=== PATIENT | female | born 1960 | race Caucasian/White ===

== ENCOUNTER 2022-02-10 06:44 | Inpatient (IN) ==
[2022-02-10] MEDS ORDERED: CEFEPIME 1 GM VIAL IV ONE (07:08)
[2022-02-10] MEDS ORDERED: VANCOMYCIN 1,000 MG in 0.9 % SODIUM CHLORIDE 250 ML IV ONE (07:08)
[2022-02-10] MEDS ORDERED: 0.9 % SODIUM CHLORIDE 1,000 ML IV ONE (07:39)
[2022-02-10 07:56] LABS: POC Calcium, Ionized 0.88 (1.16-1.32); POC Creatinine 0.9 (0.6-1.2); POC Potassium 4.2 (3.3-5.1)
[2022-02-10 08:33] LABS: Basophils # (Auto) 0.01 K/mcL (0.00-0.30); Basophils % (Auto) 0.1 % (0.0-2.0); Eosinophils # (Auto) 0.01 K/mcL (0.00-0.70); Eosinophils % (Auto) 0.1 % (0.0-7.0); Hematocrit 33.4 % (34.1-44.9); Lymphocytes # (Auto) 1.07 K/mcL (1.50-4.80); Lymphocytes % (Auto) 5.7 % (15.5-49.0); Mean Cell Volume 91.3 fL (80.0-100.0); Mean Corpuscular HGB Conc 29.9 g/dL (31.0-36.0); Mean Platelet Volume 9.4 fL (8.8-12.5); Monocytes # (Auto) 1.12 K/mcL (0.10-0.90); Neutrophils % (Auto) 87.8 % (38.0-78.0); Platelet Count 259 K/mcL (140-440); RBC 3.66 M/mcL (3.59-5.38); Red Cell Distribution Width 14.8 % (11.5-14.5); WBC 18.8 K/mcL (4.5-11.0)
[2022-02-10 08:53] LABS: ALT/SGPT 20 U/L (<40); AST/SGOT 26 U/L (<32); Albumin 4.1 gm/dL (3.2-5.2); Alkaline Phosphatase 158 U/L (39-117); Bilirubin,Direct < 0.2 mg/dL (0-0.3); Bilirubin,Total 0.4 mg/dL (0.1-1.0); Globulin 3.6 gm/dL (2.2-3.7)
--- NOTE | 2022-02-10 09:06 | XRay Report ---
HISTORY: Congestive heart failure, altered mental status FINDINGS: There are diffuse bilateral alveolar opacities throughout both lungs. No lobar consolidation is present. No pleural effusion is seen. The heart is moderately enlarged. There has been prior sternotomy with coronary bypass. Comparison with the prior exam from 01/02/22 shows the pulmonary edema has become significantly worse. IMPRESSION: Congestive heart failure with severe pulmonary edema Interpreted and Authenticated by: Yobany Rojas 02/10/22
[2022-02-10 09:25] LABS: Appearance,Urine CLEAR (Clear); Bilirubin,Urine Negative (Negative); Color,Urine YELLOW; Culture Indicated,Urine No; Glucose,Urine (UA) 50 mg/dL (Negative); Ketones,Urine Negative (Negative); Leukocyte Esterase,Urine Negative /uL (Negative); Nitrate,Urine Negative (Negative); Protein,Urine Negative (Negative); Specific Gravity,Urine 1.019 (1.000-1.035); Urine Blood Negative (Negative)
[2022-02-10] MEDS ORDERED: ACETAMINOPHEN 325 MG TABLET PO ONE (09:36)
--- NOTE | 2022-02-10 10:24 | Emergency Department Note ---
Altered Mental Status HPI General Chief Complaint: Altered Mental Status Stated Complaint: ams Time Seen by Provider: 02/10/22 07:01 Source: EMS Mode of arrival: wheelchair Limitations: altered mental status History of Present Illness HPI Narrative: Narrative: Patient presents to the emergency department with altered mental status fever and shortness of breath. Patient's symptoms reportedly began this morning. Patient is confused and is difficult to obtain history. Per chart review patient does have a history of type 2 insulin-dependent diabetes, CAD status post 5 vessel CABG, CHF wears 3 L nasal cannula at baseline. Her blood sugar was 200 for EMS. Patient denies any pain she denies any abdominal pain diarrhea chest pain she does report shortness of breath. She reports slight cough. Mostly nonproductive in nature. Related Data Home Medications Medication Instructions Recorded Confirmed Levemir Flextouch 08/23/17 05/22/21 losartan 100 mg tablet (Cozaar) 100 mg PO DAILY 08/23/17 05/22/21 omega [id number]-imi-vvg-fish oil 300 1 ea PO DAILY 08/23/17 05/22/21 mg-1,000 mg capsule (Fish Oil) insulin aspart U-100 100 unit/mL 7 unit SQ 08/30/17 05/22/21 subcutaneous solution (Novolog U-100 Insulin aspart) Insulin Pen Herrick #1 ea 01/27/18 05/22/21 blood sugar diagnostic (True #20 ea 01/27/18 05/22/21 Metrix Glucose Test Strip) blood-glucose meter (True Metrix #1 ea 01/27/18 05/22/21 Glucose Meter) hydrocodone 7.5 mg-acetaminophen 1 tab PO PRN PRN Pain 01/27/18 05/22/21 325 mg tablet insulin aspart U-100 [Novolog subcut TID 01/27/18 05/22/21 Flexpen U-100 Insulin] insulin detemir U-100 100 unit/mL 100 unit subcut QHS 01/27/18 05/22/21 subcutaneous solution (Levemir U-100 Insulin) lancets [Ultra Fine Lancets] miscellaneous QDAY 01/27/18 05/22/21 multivitamin 1 tab PO QDAY 01/27/18 05/22/21 nitroglycerin 0.4 mg sublingual 0.4 mg sublingual Q5-15M PRN 01/27/18 05/22/21 tablet acyclovir 400 mg tablet 400 mg PO TID 05/31/19 05/22/21 zolpidem 5 mg tablet 5 mg PO HSP PRN Sleep 05/31/19 05/22/21 atorvastatin 40 mg tablet 40 mg PO QHS 05/10/20 05/22/21 gabapentin 300 mg capsule 300 mg PO QAM 05/10/20 05/22/21 gabapentin 300 mg capsule 600 mg PO QHS 05/10/20 05/22/21 hydrochlorothiazide 25 mg tablet 12.5 mg PO DAILY 05/10/20 05/22/21 methocarbamol 500 mg tablet 500 mg PO BID PRN Muscle Spasm 05/10/20 05/22/21 metoprolol tartrate 25 mg tablet 50 mg PO DAILY 05/10/20 05/22/21 ibuprofen 200 mg tablet 400 mg PO .Q6-8H 05/11/20 05/22/21 minocycline 100 mg capsule 100 mg PO BID 05/11/20 05/22/21 beyujxxr-gnt-dzrk-FA-lutein PO QDAY 05/11/20 05/22/21 [Centrum [facility]] nystatin 100,000 unit/gram topical 1 applic topical BID 05/11/20 05/22/21 powder nystatin-triamcinolone 100,000 1 applic topical BID 05/11/20 05/22/21 unit/g-0.1 % topical cream prednisolone acetate 1 % eye 1 drp ophthalmic (eye) ONCE 05/11/20 05/22/21 drops,suspension (Pred Forte) triamcinolone acetonide 0.1 % 1 applic topical QDAY 05/11/20 05/22/21 topical cream urea 40 % topical cream 1 applic topical BID 05/11/20 05/22/21 aspirin 81 mg tablet,delayed 81 mg PO DAILY 04/14/21 05/22/21 release (Manuela Low Dose Aspirin) pantoprazole 40 mg tablet,delayed 40 mg PO QDAY 04/14/21 05/22/21 release Previous Rx's Medication Instructions Recorded albuterol sulfate 90 mcg/actuation 8.5 gm IH Q4-6HP PRN Cough ##1 01/03/18 aerosol inhaler Allergies Allergy/AdvReac Type Severity Reaction Status Date / Time Sulfa (Sulfonamide Allergy Severe Swelling Verified 11/06/21 08:19 Antibiotics) of Lip/Tongue/Throat Review of Systems ROS ROS Narrative: Narrative: All systems ED: reviewed and negative except as stated. [facility] Narrative Patient History Narrative: Narrative: Medical/Surgical/Family History All Active Problems (Updated 02/10/22 @ 14:14 by Yves Erickson MD) Community acquired pneumonia (Acute) Acute and chronic respiratory failure (Acute) Essential hypertension (Acute) Community acquired bacterial pneumonia (Acute) CHF exacerbation (Acute) Diarrhea (Acute) CHF (congestive heart failure) (Acute) SVT (supraventricular tachycardia) (Acute) Chronic back pain (Acute) Acute bacterial sinusitis (Acute) Hyperglycemia (Acute) Cellulitis (Acute) Cellulitis of right leg (Acute) History of surgery (Chronic) History of surgery (Chronic ~2018) History of surgery (Chronic ~2017) History of hand surgery (Chronic) Hip pain (Chronic) Other instability, right foot (Chronic) Other instability, right ankle (Chronic) Lumbar back pain (Chronic) Severe sepsis without septic shock (Chronic) Type 2 diabetes mellitus with neurologic complication (Chronic) Diabetic ulcer of right foot (Chronic) Diabetic ulcer of left foot (Chronic) Hypoxemia (Chronic) Sciatica neuralgia (Acute) Fall (Acute) Abrasion (Acute) Septic shock (Acute) Acute kidney injury (Acute) Non-ST elevation NM (NSTEMI) (Acute) Acute hyperkalemia (Acute) Heart palpitations (Chronic) Shortness of breath on exertion (Chronic) Joint pain (Chronic) Arthritis (Chronic) Avulsion of toenail (Chronic) 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) Hx of tenosynovitis (Chronic) Hx of ovarian cyst (Chronic) Neck pain (Chronic) Myocardial infarction greater than 8 weeks ago (Chronic) Chest pain (Chronic) Cardiac murmur (Chronic) CAD (coronary artery disease) (Chronic) Hazy vision (Chronic) Diaphoresis (Chronic) 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) Fatigue (Chronic) Dysphagia (Chronic) Change in bowel habits (Chronic) Rib pain on left side (Chronic) Back pain, thoracic (Chronic) Obesity (Chronic) History of tobacco use (Chronic) Diabetic retinopathy (Chronic) Diabetic polyneuropathy (Chronic) DMII (diabetes mellitus, type 2) (Chronic) Callus of foot (Chronic) Skin fissure (Chronic) Posterior calcaneal exostosis (Chronic) Left bundle branch block (Chronic) Chest pain, precordial (Chronic) Dyspnea (Chronic) Degenerative disc disease, thoracic (Chronic) Reactive airway disease (Chronic) Atypical pneumonia (Chronic) Costochondritis (Chronic) Medical History Acute bacterial sinusitis Arthritis Avulsion of toenail Entire great toenails removed/. Back pain, thoracic CAD (coronary artery disease) Callus of foot Cardiac murmur Change in bowel habits Chest pain Chest pain, precordial Damage to right ulnar nerve (~2017) Diabetic polyneuropathy Diabetic retinopathy Diabetic ulcer of left foot Diabetic ulcer of right foot Diaphoresis DMII (diabetes mellitus, type 2) Dysphagia Dyspnea Fatigue Hazy vision Heart palpitations Hip pain History of tobacco use Hx of ovarian cyst Hx of tenosynovitis Hyperglycemia Hypoxemia Joint pain Left bundle branch block Lumbar back pain With radiculopathy Myocardial infarction greater than 8 weeks ago Neck pain Obesity Other instability, right ankle Other instability, right foot Posterior calcaneal exostosis Rib pain on left side Severe sepsis without septic shock Shortness of breath on exertion Skin fissure Type 2 diabetes mellitus with neurologic complication Ulnar neuropathy of right upper extremity Surgical History History of carpal tunnel surgery History of hand surgery Left middle trigger finger release History of surgery (~2017) Right ulnar nerve transposition History of surgery (~2018) Ulnar nerve neuoliasis History of surgery Permanent removal bilateral great toenails, performed by Dr. Brewer Hx of appendectomy Hx of bilateral cataract extraction (~2017) Hx of bilateral oophorectomy Hx of section Patient has had 3 sections. Hx of cholecystectomy Hx of five vessel coronary artery bypass Hx of hysterectomy Hx of resection of stomach Hx of tonsillectomy Family History Family/Other Diabetes Maternal Social History Smoking Status: Never smoker Alcohol Intake Frequency: does not drink Substance Use: does not use Exam Narrative Narrative: Narrative: Vital signs noted General: Awake. Moderate distress HEENT: NCAT PERRL EOMI. No conjunctivitis. Membranes moist. Neck: Supple, trachea midline Cardiovascular: RRR. No murmur. No rubs. No gallops. Respiratory: Tachypneic, coarse breath sounds Gastrointestinal: Soft. No tenderness, all 4 abdominal quadrants are without tenderness to deep palpation Musculoskeletal: Trace lower extremity edema Skin: Warm. Dry. No rash Neurologic: Alert and oriented x1, states that she is at [place] emergency department and then later states that she is at [place], she is oriented to herself. General Limitations: altered mental status Course Vital Signs Vital signs: Vital Signs Temperature 100.9 F H 02/10/22 06:45 Pulse Rate 95 H 02/10/22 06:45 Respiratory Rate 34 H 02/10/22 06:45 Blood Pressure 161/72 02/10/22 06:45 Pulse Oximetry (%) 92 02/10/22 06:45 Oxygen Delivery Method 02/10/22 06:45 Oxygen Flow Rate (L/min) 4 02/10/22 06:45 Temperature 99.4 F H 02/10/22 11:11 Pulse Rate 76 02/10/22 12:21 Respiratory Rate 24 H 02/10/22 12:21 Blood Pressure 126/64 02/10/22 12:21 Pulse Oximetry (%) 93 02/10/22 12:21 Oxygen Delivery Method 02/10/22 11:37 Oxygen Flow Rate (L/min) 6 02/10/22 11:37 MDM MDM Narrative Medical decision making narrative: Narrative: This is a 61-year-old female with multiple medical comorbidities who presents with fever tachycardia tachypnea and increased oxygen requirement. Her labs were obtained and reviewed they are concerning for leukocytosis with left shift. Patient was given broad-spectrum antibiotics given her vital signs concerns for sepsis. Blood cultures were drawn prior to the initiation of antibiotics. Urinalysis is without evidence of infection patient's chest x-ray per my interpretation shows multiple patchy infiltrates versus less likely CHF exacerbation. Patient does not look grossly overloaded her BNP is less than it was a month ago I suspect that this is a pneumonia. I have spoken with the hospitalist who is in agreement to admit the patient. Lab Data Result diagrams: 02/10/22 07:19 Labs: Lab Results 02/10/22 02/10/22 02/10/22 Range/Units 07:14 07:19 07:19 WBC 18.8 H (4.5-11.0) K/mcL RBC 3.66 (3.59-5.38) M/mcL Hgb 10.0 L (11.2-15.7) g/dL Hct 33.4 L (34.1-44.9) % POC Hct (36-48) MCV 91.3 (80.0-100.0) fL MCH 27.3 (26.0-34.0) pg MCHC 29.9 L (31.0-36.0) g/dL RDW 14.8 H (11.5-14.5) % Plt Count 259 (140-440) K/mcL MPV 9.4 (8.8-12.5) fL Immature Gran % (Auto) 0.3 (0.0-0.5) % Neut % (Auto) 87.8 H (38.0-78.0) % Lymph % (Auto) 5.7 L (15.5-49.0) % [place] % (Auto) 6.0 (1.0-12.0) % Eos % (Auto) 0.1 (0.0-7.0) % Baso % (Auto) 0.1 (0.0-2.0) % Lymph # (Auto) 1.07 L (1.50-4.80) K/mcL [place] # (Auto) 1.12 H (0.10-0.90) K/mcL Eos # (Auto) 0.01 (0.00-0.70) K/mcL Baso # (Auto) 0.01 (0.00-0.30) K/mcL Immature Gran # 0.06 H (0.00-0.05) K/mcl Absolute Neutrophils 16.54 H (1.80-8.00) K/mcL POC VBG pH 7.46 H (7.32-7.42) POC VBG pCO2 at Temp 42.7 (41-51) POC VBG pO2 35 (25-40) POC VBG HCO3 30.2 H (24-28) POC VBG Total CO2 32.0 H (25-29) POC Venous O2 Sat 71.0 H (40-70) POC VBG Base Excess 6.0 H* (-2-2) VBG Lactic Acid 1.4 (0.5-2) POC Sodium (133-145) POC Potassium (3.3-5.1) POC Chloride (96-108) POC Total CO2 (22-30) POC BUN (6-20) POC Creatinine (0.6-1.2) POC Glucose (70-105) POC WB Ioniz Calcium (1.16-1.32) Total Bilirubin 0.4 (0.1-1.0) mg/dL Direct Bilirubin < 0.2 (0-0.3) mg/dL AST 26 (<32) U/L ALT 20 (<40) U/L Alkaline Phosphatase 158 H (39-117) U/L NT-Pro-B Natriuret Pep (<125.0) pg/mL Total Protein 7.7 (5.9-8.4) gm/dL Albumin 4.1 (3.2-5.2) gm/dL Globulin 3.6 (2.2-3.7) gm/dL Lipase 7 (7-60) U/L Procalcitonin (<0.10) ng/mL Urine Color Urine Appearance (Clear) Urine pH (5.0-9.0) Ur Specific [place] (1.000-1.035) Urine Protein (Negative) mg/dL Urine Glucose (UA) (Negative) mg/dL Urine Ketones (Negative) mg/dL Urine Occult Blood (Negative) mg/dL Urine Nitrate (Negative) Urine Bilirubin (Negative) mg/dL Urine Urobilinogen mg/dL Ur Leukocyte Esterase (Negative) /uL Ur Culture Indicated? POC Troponin I (0.02-0.08) 02/10/22 02/10/22 02/10/22 Range/Units 07:19 07:19 07:21 WBC (4.5-11.0) K/mcL RBC (3.59-5.38) M/mcL Hgb (11.2-15.7) g/dL Hct (34.1-44.9) % POC Hct (36-48) MCV (80.0-100.0) fL MCH (26.0-34.0) pg MCHC (31.0-36.0) g/dL RDW (11.5-14.5) % Plt Count (140-440) K/mcL MPV (8.8-12.5) fL Immature Gran % (Auto) (0.0-0.5) % Neut % (Auto) (38.0-78.0) % Lymph % (Auto) (15.5-49.0) % [place] % (Auto) (1.0-12.0) % Eos % (Auto) (0.0-7.0) % Baso % (Auto) (0.0-2.0) % Lymph # (Auto) (1.50-4.80) K/mcL [place] # (Auto) (0.10-0.90) K/mcL Eos # (Auto) (0.00-0.70) K/mcL Baso # (Auto) (0.00-0.30) K/mcL Immature Gran # (0.00-0.05) K/mcl Absolute Neutrophils (1.80-8.00) K/mcL POC VBG pH 7.51 H (7.32-7.42) POC VBG pCO2 at Temp 36.0 L (41-51) POC VBG pO2 40 (25-40) POC VBG HCO3 29.0 H (24-28) POC VBG Total CO2 30.0 H (25-29) POC Venous O2 Sat 80.0 H (40-70) POC VBG Base Excess 6.0 H* (-2-2) VBG Lactic Acid 2.8 H (0.5-2) POC Sodium (133-145) POC Potassium (3.3-5.1) POC Chloride (96-108) POC Total CO2 (22-30) POC BUN (6-20) POC Creatinine (0.6-1.2) POC Glucose (70-105) POC WB Ioniz Calcium (1.16-1.32) Total Bilirubin (0.1-1.0) mg/dL Direct Bilirubin (0-0.3) mg/dL AST (<32) U/L ALT (<40) U/L Alkaline Phosphatase (39-117) U/L NT-Pro-B Natriuret Pep 3976.0 H (<125.0) pg/mL Total Protein (5.9-8.4) gm/dL Albumin (3.2-5.2) gm/dL Globulin (2.2-3.7) gm/dL Lipase (7-60) U/L Procalcitonin 0.06 (<0.10) ng/mL Urine Color Urine Appearance (Clear) Urine pH (5.0-9.0) Ur Specific [place] (1.000-1.035) Urine Protein (Negative) mg/dL Urine Glucose (UA) (Negative) mg/dL Urine Ketones (Negative) mg/dL Urine Occult Blood (Negative) mg/dL Urine Nitrate (Negative) Urine Bilirubin (Negative) mg/dL Urine Urobilinogen mg/dL Ur Leukocyte Esterase (Negative) /uL Ur Culture Indicated? POC Troponin I (0.02-0.08) 02/10/22 02/10/22 02/10/22 Range/Units 07:22 07:52 08:00 WBC (4.5-11.0) K/mcL RBC (3.59-5.38) M/mcL Hgb (11.2-15.7) g/dL Hct (34.1-44.9) % POC Hct 36.0 (36-48) MCV (80.0-100.0) fL MCH (26.0-34.0) pg MCHC (31.0-36.0) g/dL RDW (11.5-14.5) % Plt Count (140-440) K/mcL MPV (8.8-12.5) fL Immature Gran % (Auto) (0.0-0.5) % Neut % (Auto) (38.0-78.0) % Lymph % (Auto) (15.5-49.0) % [place] % (Auto) (1.0-12.0) % Eos % (Auto) (0.0-7.0) % Baso % (Auto) (0.0-2.0) % Lymph # (Auto) (1.50-4.80) K/mcL [place] # (Auto) (0.10-0.90) K/mcL Eos # (Auto) (0.00-0.70) K/mcL Baso # (Auto) (0.00-0.30) K/mcL Immature Gran # (0.00-0.05) K/mcl Absolute Neutrophils (1.80-8.00) K/mcL POC VBG pH (7.32-7.42) POC VBG pCO2 at Temp (41-51) POC VBG pO2 (25-40) POC VBG HCO3 (24-28) POC VBG Total CO2 (25-29) POC Venous O2 Sat (40-70) POC VBG Base Excess (-2-2) VBG Lactic Acid (0.5-2) POC Sodium 134 (133-145) POC Potassium 4.2 (3.3-5.1) POC Chloride 101 (96-108) POC Total CO2 27.0 (22-30) POC BUN 28 H (6-20) POC Creatinine 0.9 (0.6-1.2) POC Glucose 243 H (70-105) POC WB Ioniz Calcium 0.88 L (1.16-1.32) Total Bilirubin (0.1-1.0) mg/dL Direct Bilirubin (0-0.3) mg/dL AST (<32) U/L ALT (<40) U/L Alkaline Phosphatase (39-117) U/L NT-Pro-B Natriuret Pep (<125.0) pg/mL Total Protein (5.9-8.4) gm/dL Albumin (3.2-5.2) gm/dL Globulin (2.2-3.7) gm/dL Lipase (7-60) U/L Procalcitonin (<0.10) ng/mL Urine Color Yellow Urine Appearance Clear (Clear) Urine pH 5.0 (5.0-9.0) Ur Specific [place] 1.019 (1.000-1.035) Urine Protein Negative (Negative) mg/dL Urine Glucose (UA) 50 A (Negative) mg/dL Urine Ketones Negative (Negative) mg/dL Urine Occult Blood Negative (Negative) mg/dL Urine Nitrate Negative (Negative) Urine Bilirubin Negative (Negative) mg/dL Urine Urobilinogen 4.0 A mg/dL Ur Leukocyte Esterase Negative (Negative) /uL Ur Culture Indicated? No POC Troponin I 0.02 (0.02-0.08) 02/10/22 Range/Units 09:11 WBC (4.5-11.0) K/mcL RBC (3.59-5.38) M/mcL Hgb (11.2-15.7) g/dL Hct (34.1-44.9) % POC Hct (36-48) MCV (80.0-100.0) fL MCH (26.0-34.0) pg MCHC (31.0-36.0) g/dL RDW (11.5-14.5) % Plt Count (140-440) K/mcL MPV (8.8-12.5) fL Immature Gran % (Auto) (0.0-0.5) % Neut % (Auto) (38.0-78.0) % Lymph % (Auto) (15.5-49.0) % [place] % (Auto) (1.0-12.0) % Eos % (Auto) (0.0-7.0) % Baso % (Auto) (0.0-2.0) % Lymph # (Auto) (1.50-4.80) K/mcL [place] # (Auto) (0.10-0.90) K/mcL Eos # (Auto) (0.00-0.70) K/mcL Baso # (Auto) (0.00-0.30) K/mcL Immature Gran # (0.00-0.05) K/mcl Absolute Neutrophils (1.80-8.00) K/mcL POC VBG pH 7.45 H (7.32-7.42) POC VBG pCO2 at Temp 42.0 (41-51) POC VBG pO2 34 (25-40) POC VBG HCO3 29.2 H (24-28) POC VBG Total CO2 30.0 H (25-29) POC Venous O2 Sat 68.0 (40-70) POC VBG Base Excess 5.0 H* (-2-2) VBG Lactic Acid 2.0 (0.5-2) POC Sodium (133-145) POC Potassium (3.3-5.1) POC Chloride (96-108) POC Total CO2 (22-30) POC BUN (6-20) POC Creatinine (0.6-1.2) POC Glucose (70-105) POC WB Ioniz Calcium (1.16-1.32) Total Bilirubin (0.1-1.0) mg/dL Direct Bilirubin (0-0.3) mg/dL AST (<32) U/L ALT (<40) U/L Alkaline Phosphatase (39-117) U/L NT-Pro-B Natriuret Pep (<125.0) pg/mL Total Protein (5.9-8.4) gm/dL Albumin (3.2-5.2) gm/dL Globulin (2.2-3.7) gm/dL Lipase (7-60) U/L Procalcitonin (<0.10) ng/mL Urine Color Urine Appearance (Clear) Urine pH (5.0-9.0) Ur Specific [place] (1.000-1.035) Urine Protein (Negative) mg/dL Urine Glucose (UA) (Negative) mg/dL Urine Ketones (Negative) mg/dL Urine Occult Blood (Negative) mg/dL Urine Nitrate (Negative) Urine Bilirubin (Negative) mg/dL Urine Urobilinogen mg/dL Ur Leukocyte Esterase (Negative) /uL Ur Culture Indicated? POC Troponin I (0.02-0.08) ED POC Tests ED POC Tests: MAKENNA - SARS Antigen Negative EKG Data EKG #1: EKG attestation: Yes I reviewed and interpreted this EKG., Yes There are no EKG findings of acute coronary syndrome and Yes This EKG will be read by dye worker EKG results narrative: EKG per my interpretation shows a sinus rhythm with a rate of 94 there is a left bundle branch block there is no evidence of STEMI based on scarBosa's criteria. Discharge Plan Patient/Caregiver Discharge Instructions Pt seen by DISPENSING AND MEASURING OPTICIAN/PA only: No Clinical Impression: Community acquired pneumonia Patient Disposition: Xfer As Inpt ([facility]) Condition: Serious Discharge Date/Time: 02/10/22 12:43
--- NOTE | 2022-02-10 11:40 | Internal Med History&Physical ---
HPI History of Present Illness Patient information: Note initiated : 02/10/22 at 11:30 am Service Date, if different from initiated Date: [] Patient: Pat Chapin 61 y/o F admitted on for ams. Chief Complaint: [] Chief complaint: shortness of breath, weakness, fever, diaphoresis History of present illness: Ms. Chapin is a 61 year old F history of CAD status post CABG, CHF, type 2 diabetes mellitus with diabetic neuropathy on insulin pump, essential hypertension, dyslipidemia, chronic back pain, presented with 1 day history of acute onset shortness of breath, cough, wheezing, fever, diaphoresis, general weakness. No prior similar episode. COVID-negative. Patient's is complaining of acute onset shortness of breath with nonproductive cough and respiratory wheezings. Fever with T-max 38.3. Positive for diaphoresis. Positive for general weakness. Denies any chest pain or palpitations. Vital signs significant for fever with T-max 38.3 as well as tachypnea with rate of breathing up to 30 bpm. Labs significant for leukocytosis with WBC 18.8. Serum lactic acid 2.8 with repeat 2.0. Procalcitonin 0.06. COVID-negative. BNP 3976. Chest x-ray suggestive of CHF with exacerbations versus multifocal pneumonia. Constitutional Constitutional: Present excessive sweating, fever(s) and weakness; Absent chills or fatigue EENT Eyes: Absent blurry vision, change in vision, loss of vision or other visual disturbances Ears: Absent decreased hearing or tinnitus Nose, mouth and throat: Absent abnormal hearing, dry mouth, headache(s), nasal congestion or sore throat Cardiovascular Cardiovascular: Absent chest pain, chest pain at rest, edema, irregular heart rhythm or palpatations Respiratory Respiratory: Present cough, dyspnea and wheezing Gastrointestinal Gastrointestinal: Absent abdominal pain, constipation, diarrhea, nausea or vomiting Musculoskeletal Musculoskeletal: Absent back pain, deformity, limited range of motion, muscle cramps, muscle weakness or numbness Integumentary Integumentary: Absent lesions, rash or wounds Neurological Neurological: Absent focal weakness, headache(s) or numbness Psychiatric Psychiatric: Absent anxiety, depression or hallucinations PFSH PFSH All Active Problems (Updated 02/10/22 @ 11:37 by Syd Chavez MD) Acute and chronic respiratory failure (Acute) Essential hypertension (Acute) Community acquired bacterial pneumonia (Acute) CHF exacerbation (Acute) Diarrhea (Acute) CHF (congestive heart failure) (Acute) SVT (supraventricular tachycardia) (Acute) Chronic back pain (Acute) Acute bacterial sinusitis (Acute) Hyperglycemia (Acute) Cellulitis (Acute) Cellulitis of right leg (Acute) History of surgery (Chronic) History of surgery (Chronic ~2018) History of surgery (Chronic ~2017) History of hand surgery (Chronic) Hip pain (Chronic) Other instability, right foot (Chronic) Other instability, right ankle (Chronic) Lumbar back pain (Chronic) Severe sepsis without septic shock (Chronic) Type 2 diabetes mellitus with neurologic complication (Chronic) Diabetic ulcer of right foot (Chronic) Diabetic ulcer of left foot (Chronic) Hypoxemia (Chronic) Sciatica neuralgia (Acute) Fall (Acute) Abrasion (Acute) Septic shock (Acute) Acute kidney injury (Acute) Non-ST elevation MS (NSTEMI) (Acute) Acute hyperkalemia (Acute) Heart palpitations (Chronic) Shortness of breath on exertion (Chronic) Joint pain (Chronic) Arthritis (Chronic) Avulsion of toenail (Chronic) 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) Hx of tenosynovitis (Chronic) Hx of ovarian cyst (Chronic) Neck pain (Chronic) Myocardial infarction greater than 8 weeks ago (Chronic) Chest pain (Chronic) Cardiac murmur (Chronic) CAD (coronary artery disease) (Chronic) Hazy vision (Chronic) Diaphoresis (Chronic) 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) Fatigue (Chronic) Dysphagia (Chronic) Change in bowel habits (Chronic) Rib pain on left side (Chronic) Back pain, thoracic (Chronic) Obesity (Chronic) History of tobacco use (Chronic) Diabetic retinopathy (Chronic) Diabetic polyneuropathy (Chronic) DMII (diabetes mellitus, type 2) (Chronic) Callus of foot (Chronic) Skin fissure (Chronic) Posterior calcaneal exostosis (Chronic) Left bundle branch block (Chronic) Chest pain, precordial (Chronic) Dyspnea (Chronic) Degenerative disc disease, thoracic (Chronic) Reactive airway disease (Chronic) Atypical pneumonia (Chronic) Costochondritis (Chronic) Medical History Acute bacterial sinusitis Arthritis Avulsion of toenail Entire great toenails removed/. Back pain, thoracic CAD (coronary artery disease) Callus of foot Cardiac murmur Change in bowel habits Chest pain Chest pain, precordial Damage to right ulnar nerve (~2017) Diabetic polyneuropathy Diabetic retinopathy Diabetic ulcer of left foot Diabetic ulcer of right foot Diaphoresis DMII (diabetes mellitus, type 2) Dysphagia Dyspnea Fatigue Hazy vision Heart palpitations Hip pain History of tobacco use Hx of ovarian cyst Hx of tenosynovitis Hyperglycemia Hypoxemia Joint pain Left bundle branch block Lumbar back pain With radiculopathy Myocardial infarction greater than 8 weeks ago Neck pain Obesity Other instability, right ankle Other instability, right foot Posterior calcaneal exostosis Rib pain on left side Severe sepsis without septic shock Shortness of breath on exertion Skin fissure Type 2 diabetes mellitus with neurologic complication Ulnar neuropathy of right upper extremity Surgical History History of carpal tunnel surgery History of hand surgery Left middle trigger finger release History of surgery (~2017) Right ulnar nerve transposition History of surgery (~2018) Ulnar nerve neuoliasis History of surgery Permanent removal bilateral great toenails, performed by Dr. Brewer Hx of appendectomy Hx of bilateral cataract extraction (~2017) Hx of bilateral oophorectomy Hx of section Patient has had 3 sections. Hx of cholecystectomy Hx of five vessel coronary artery bypass Hx of hysterectomy Hx of resection of stomach Hx of tonsillectomy Family History Family/Other Diabetes Maternal Social History adopted: Yes marital status: occupational status: employed physical activity: none smoking status: Never smoker smoking status stop date: 05/20/01 alcohol intake frequency: does not drink substance use type: does not use MEDS/ALLERGIES Home Medications and Allergies Home Medications Medication Instructions Recorded Confirmed Type Levemir Flextouch 08/23/17 05/22/21 History losartan 100 mg tablet (Cozaar) 100 mg PO DAILY 08/23/17 05/22/21 History omega 8-cos-kzn-fish oil 300 1 ea PO DAILY 08/23/17 05/22/21 History mg-1,000 mg capsule (Fish Oil) insulin aspart U-100 100 unit/mL 7 unit SQ 08/30/17 05/22/21 History subcutaneous solution (Novolog U-100 Insulin aspart) albuterol sulfate 90 mcg/actuation 8.5 gm IH Q4-6HP PRN Cough ##1 01/03/18 05/22/21 Rx aerosol inhaler Insulin Pen [place] #1 ea 01/27/18 05/22/21 History blood sugar diagnostic (True #20 ea 01/27/18 05/22/21 History Metrix Glucose Test Strip) blood-glucose meter (True Metrix #1 ea 01/27/18 05/22/21 History Glucose Meter) hydrocodone 7.5 mg-acetaminophen 1 tab PO PRN PRN Pain 01/27/18 05/22/21 History 325 mg tablet insulin aspart U-100 [Novolog subcut TID 01/27/18 05/22/21 History Flexpen U-100 Insulin] insulin detemir U-100 100 unit/mL 100 unit subcut QHS 01/27/18 05/22/21 History subcutaneous solution (Levemir U-100 Insulin) lancets [Ultra Fine Lancets] miscellaneous QDAY 01/27/18 05/22/21 History multivitamin 1 tab PO QDAY 01/27/18 05/22/21 History nitroglycerin 0.4 mg sublingual 0.4 mg sublingual Q5-15M PRN 01/27/18 05/22/21 History tablet acyclovir 400 mg tablet 400 mg PO TID 05/31/19 05/22/21 History zolpidem 5 mg tablet 5 mg PO HSP PRN Sleep 05/31/19 05/22/21 History atorvastatin 40 mg tablet 40 mg PO QHS 05/10/20 05/22/21 History gabapentin 300 mg capsule 300 mg PO QAM 05/10/20 05/22/21 History gabapentin 300 mg capsule 600 mg PO QHS 05/10/20 05/22/21 History hydrochlorothiazide 25 mg tablet 12.5 mg PO DAILY 05/10/20 05/22/21 History methocarbamol 500 mg tablet 500 mg PO BID PRN Muscle Spasm 05/10/20 05/22/21 History metoprolol tartrate 25 mg tablet 50 mg PO DAILY 05/10/20 05/22/21 History ibuprofen 200 mg tablet 400 mg PO .Q6-8H 05/11/20 05/22/21 History minocycline 100 mg capsule 100 mg PO BID 05/11/20 05/22/21 History emyashno-wky-dslu-FA-lutein PO QDAY 05/11/20 05/22/21 History [Centrum Silver Women] nystatin 100,000 unit/gram topical 1 applic topical BID 05/11/20 05/22/21 History powder nystatin-triamcinolone 100,000 1 applic topical BID 05/11/20 05/22/21 History unit/g-0.1 % topical cream prednisolone acetate 1 % eye 1 drp ophthalmic (eye) ONCE 05/11/20 05/22/21 History drops,suspension (Pred Forte) triamcinolone acetonide 0.1 % 1 applic topical QDAY 05/11/20 05/22/21 History topical cream urea 40 % topical cream 1 applic topical BID 05/11/20 05/22/21 History aspirin 81 mg tablet,delayed 81 mg PO DAILY 04/14/21 05/22/21 History release ([place] Low Dose Aspirin) pantoprazole 40 mg tablet,delayed 40 mg PO QDAY 04/14/21 05/22/21 History release Allergies Allergy/AdvReac Type Severity Reaction Status Date / Time Sulfa (Sulfonamide Allergy Severe Swelling Verified 11/06/21 08:19 Antibiotics) of Lip/Tongue/Throat EXAM Constitutional Vitals: Temp Pulse Resp BP Pulse Ox O2 Del Method O2 Flow Rate 37.4 C H 87 19 168/88 96 6 02/10/22 11:11 02/10/22 11:11 02/10/22 11:11 02/10/22 10:18 02/10/22 11:11 02/10/22 10:29 02/10/22 10:29 General appearance: cooperative, disheveled, no acute distress and obese Head Head exam: Present atraumatic and normocephalic Eye Eye exam: Present EOMI and PERRL ENT ENT exam: Present mucous membranes moist, normal exam and normal external ear exam Additional comments: Nasal cannula in place Neck Neck exam: Present normal inspection; Absent lymphadenopathy, tenderness or thyromegaly Respiratory Respiratory exam: Present rhonchi; Absent accessory muscle use, respiratory distress or wheezes Cardiovascular Cardiovascular exam: Present normal rate and rhythm; Absent JVD GI/Abdominal GI/Abdominal exam: Present normal bowel sounds and soft; Absent organomegaly or tenderness Extremities Exam Extremities exam: Present full ROM, normal capillary refill and normal inspection; Absent tenderness Neurological Exam Neurological exam: Present alert, CN II-XII intact and oriented X3; Absent motor sensory deficit Psychiatric Psychiatric exam: Present normal affect and normal mood; Absent anxious or depressed Skin Skin exam: Present diaphoretic, intact and warm; Absent dry DATA Data Completed and Pending Labs: Labs from last 24 hours 02/10/22 02/10/22 02/10/22 09:11 08:00 07:52 WBC RBC Hgb Hct POC Hct 36.0 MCV MCH MCHC RDW Plt Count MPV Immature Gran % (Auto) Neut % (Auto) Lymph % (Auto) [place] % (Auto) Eos % (Auto) Baso % (Auto) Lymph # (Auto) [place] # (Auto) Eos # (Auto) Baso # (Auto) Immature Gran # Absolute Neutrophils POC VBG pH 7.45 H POC VBG pCO2 at Temp 42.0 POC VBG pO2 34 POC VBG HCO3 29.2 H POC VBG Total CO2 30.0 H POC Venous O2 Sat 68.0 POC VBG Base Excess 5.0 H* VBG Lactic Acid 2.0 POC Sodium 134 POC Potassium 4.2 POC Chloride 101 POC Total CO2 27.0 POC BUN 28 H POC Creatinine 0.9 POC Glucose 243 H POC WB Ioniz Calcium 0.88 L Total Bilirubin Direct Bilirubin AST ALT Alkaline Phosphatase NT-Pro-B Natriuret Pep Total Protein Albumin Globulin Lipase Procalcitonin Urine Color Yellow Urine Appearance Clear Urine pH 5.0 Ur Specific [place] 1.019 Urine Protein Negative Urine Glucose (UA) 50 A Urine Ketones Negative Urine Occult Blood Negative Urine Nitrate Negative Urine Bilirubin Negative Urine Urobilinogen 4.0 A Ur Leukocyte Esterase Negative Ur Culture Indicated? No POC Troponin I 02/10/22 02/10/22 02/10/22 07:22 07:21 07:19 WBC RBC Hgb Hct POC Hct MCV MCH MCHC RDW Plt Count MPV Immature Gran % (Auto) Neut % (Auto) Lymph % (Auto) [place] % (Auto) Eos % (Auto) Baso % (Auto) Lymph # (Auto) [place] # (Auto) Eos # (Auto) Baso # (Auto) Immature Gran # Absolute Neutrophils POC VBG pH 7.51 H POC VBG pCO2 at Temp 36.0 L POC VBG pO2 40 POC VBG HCO3 29.0 H POC VBG Total CO2 30.0 H POC Venous O2 Sat 80.0 H POC VBG Base Excess 6.0 H* VBG Lactic Acid 2.8 H POC Sodium POC Potassium POC Chloride POC Total CO2 POC BUN POC Creatinine POC Glucose POC WB Ioniz Calcium Total Bilirubin Direct Bilirubin AST ALT Alkaline Phosphatase NT-Pro-B Natriuret Pep 3976.0 H Total Protein Albumin Globulin Lipase Procalcitonin Urine Color Urine Appearance Urine pH Ur Specific [place] Urine Protein Urine Glucose (UA) Urine Ketones Urine Occult Blood Urine Nitrate Urine Bilirubin Urine Urobilinogen Ur Leukocyte Esterase Ur Culture Indicated? POC Troponin I 0.02 02/10/22 02/10/22 02/10/22 07:19 07:19 07:19 WBC 18.8 H RBC 3.66 Hgb 10.0 L Hct 33.4 L POC Hct MCV 91.3 MCH 27.3 MCHC 29.9 L RDW 14.8 H Plt Count 259 MPV 9.4 Immature Gran % (Auto) 0.3 Neut % (Auto) 87.8 H Lymph % (Auto) 5.7 L [place] % (Auto) 6.0 Eos % (Auto) 0.1 Baso % (Auto) 0.1 Lymph # (Auto) 1.07 L [place] # (Auto) 1.12 H Eos # (Auto) 0.01 Baso # (Auto) 0.01 Immature Gran # 0.06 H Absolute Neutrophils 16.54 H POC VBG pH POC VBG pCO2 at Temp POC VBG pO2 POC VBG HCO3 POC VBG Total CO2 POC Venous O2 Sat POC VBG Base Excess VBG Lactic Acid POC Sodium POC Potassium POC Chloride POC Total CO2 POC BUN POC Creatinine POC Glucose POC WB Ioniz Calcium Total Bilirubin 0.4 Direct Bilirubin < 0.2 AST 26 ALT 20 Alkaline Phosphatase 158 H NT-Pro-B Natriuret Pep Total Protein 7.7 Albumin 4.1 Globulin 3.6 Lipase 7 Procalcitonin 0.06 Urine Color Urine Appearance Urine pH Ur Specific [place] Urine Protein Urine Glucose (UA) Urine Ketones Urine Occult Blood Urine Nitrate Urine Bilirubin Urine Urobilinogen Ur Leukocyte Esterase Ur Culture Indicated? POC Troponin I Pending 02/10/22 07:14 WBC RBC Hgb Hct POC Hct MCV MCH MCHC RDW Plt Count MPV Immature Gran % (Auto) Neut % (Auto) Lymph % (Auto) [place] % (Auto) Eos % (Auto) Baso % (Auto) Lymph # (Auto) [place] # (Auto) Eos # (Auto) Baso # (Auto) Immature Gran # Absolute Neutrophils POC VBG pH 7.46 H POC VBG pCO2 at Temp 42.7 POC VBG pO2 35 POC VBG HCO3 30.2 H POC VBG Total CO2 32.0 H POC Venous O2 Sat 71.0 H POC VBG Base Excess 6.0 H* VBG Lactic Acid 1.4 POC Sodium POC Potassium POC Chloride POC Total CO2 POC BUN POC Creatinine POC Glucose POC WB Ioniz Calcium Total Bilirubin Direct Bilirubin AST ALT Alkaline Phosphatase NT-Pro-B Natriuret Pep Total Protein Albumin Globulin Lipase Procalcitonin Urine Color Urine Appearance Urine pH Ur Specific [place] Urine Protein Urine Glucose (UA) Urine Ketones Urine Occult Blood Urine Nitrate Urine Bilirubin Urine Urobilinogen Ur Leukocyte Esterase Ur Culture Indicated? POC Troponin I A/P Assessment and plan (1) CHF exacerbation: Status: Acute (2) Community acquired bacterial pneumonia: Status: Acute (3) Type 2 diabetes mellitus with neurologic complication: Status: Chronic (4) CAD (coronary artery disease): Status: Chronic (5) Obesity: Status: Chronic (6) Hyperglycemia: Status: Acute (7) Essential hypertension: Status: Acute (8) Chronic back pain: Status: Acute Qualifiers: Back pain laterality: bilateral Back pain location: low back pain Sciatica presence: without sciatica Qualified Code(s): M54.50 - Low back pain, unspecified; G89.29 - Other chronic pain (9) Acute and chronic respiratory failure: Status: Acute Narrative A/P Narrative: Assessment and Plans: 1. Acute on chronic respiratory failure: DDx: CHF with exacerbation vs community acquired pneumonia Inpatient med surg telemetry Supplemental oxygen therapy Physical therapy Occupational therapy 2D echocardiogram 2L/day fluid restriction Daily weigh Strict intake and output Lasix 20mg IV BID Metoprolol tartrate Losartan Serial lactic acid Blood cultures Rocephin Zithromax cbc w/ auto diff in the morning to trend WBC 2. T2DM with diabetic neuropathy on insulin pump: HgA1c Hold any oral hypoglycemics Continue insulin pump Hypoglycemia protocol Diabetic diet 3. h/o CAD: Aspirin Statin Metoprolol tartrate 4. Essential hypertension: Metoprolol tartrate Losartan Lasix IV 5. Hyperlipidemia: Continue statin therapy 6. Chronic back pain: Ibuprofen [place] Morphine IV 7. 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
[2022-02-10] MEDS ORDERED: ONDANSETRON 4 MG/2 ML VIAL IV PRN (13:05)
[2022-02-10] MEDS ORDERED: hydrALAZINE 20 MG/ML VIAL IV PRN (13:05)
[2022-02-10] MEDS ORDERED: IPRATROPIUM/ALBUTEROL 3 ML AMPUL.NEB NEB PRN (13:05)
[2022-02-10] MEDS ORDERED: DEXTROSE 31 GM ORAL.SUSP PO PRN (13:05)
[2022-02-10] MEDS ORDERED: cefTRIAXone 1 GM in DEXTROSE 5% IN WATER 50 ML IV SCH (13:05)
[2022-02-10] MEDS ORDERED: ALBUTEROL SULFATE 200 PUFF INHALER INH PRN (13:05)
[2022-02-10] MEDS ORDERED: ACETAMINOPHEN 325 MG TABLET PO PRN (13:05)
[2022-02-10] MEDS ORDERED: morphine 4 MG/ML VIAL IV PRN (13:05)
[2022-02-10] MEDS ORDERED: NITROGLYCERIN 0.4 MG TAB.SUBL SL PRN (13:05)
[2022-02-10] MEDS ORDERED: METHOCARBAMOL 500 MG TABLET PO PRN (13:05)
[2022-02-10] MEDS ORDERED: ZOLPIDEM 5 MG TABLET PO PRN (13:05)
[2022-02-10] MEDS ORDERED: DEXTROSE 50% 50 ML VIAL IV PRN (13:05)
[2022-02-10] MEDS ORDERED: IBUPROFEN 200 MG TABLET PO PRN (13:45)
[2022-02-10 14:44] LABS: Hemoglobin A1C 8.7 % Hgb (4.0-6.0)
[2022-02-10] MEDS: AZITHROMYCIN 500 MG in DEXTROSE 5% IN WATER 250 ML IV SCH (15:24)
[2022-02-10] MEDS: ACYCLOVIR 400 MG TABLET PO SCH ×2 (15:24→21:00)
[2022-02-10] MEDS: 0.9 % SODIUM CHLORIDE 10 ML SYRINGE IV SCH ×2 (15:24→20:50)
[2022-02-10] MEDS: cefTRIAXone 1 GM VIAL IV SCH (15:24)
[2022-02-10] MEDS: INSULIN LISPRO 1 UNIT/0.01 ML UNIT SQ SCH ×3 (15:46→20:57)
[2022-02-10] MEDS: FUROSEMIDE 20 MG/2 ML VIAL IV SCH (16:53)
[2022-02-10] MEDS: HYDROCODONE/APAP 7.5/325MG TABLET PO PRN ×2 (16:54→20:59)
[2022-02-10] MEDS ORDERED: INSULIN GLARGINE, HUMAN 1 UNIT/0.01 ML SQ SCH (21:00)
[2022-02-10] MEDS: GABAPENTIN 300 MG CAPSULE PO SCH (21:00)
[2022-02-10] MEDS: DOCUSATE SODIUM 100 MG CAPSULE PO SCH (21:06)
[2022-02-10] MEDS: UREA 40% TOPICAL SCH (21:07)
[2022-02-10] MEDS: SENNOSIDES 1 TABLET PO SCH (21:07)
[2022-02-10] MEDS: MINOCYCLINE 100 MG CAPSULE PO SCH (21:09)
[2022-02-10] MEDS: ATORVASTATIN 40 MG TABLET PO SCH (21:09)
[2022-02-10] MEDS: NYSTATIN POWDER BOTTLE 15GM TOPICAL SCH (21:09)
[2022-02-10] MEDS: TRIAMCINOLONE TOPICAL SCH (21:10)
[2022-02-10] MEDS: NYSTATIN TOPICAL SCH (21:10)
[2022-02-11] MEDS: HYDROCODONE/APAP 7.5/325MG TABLET PO PRN ×3 (03:42→19:04)
[2022-02-11] MEDS: 0.9 % SODIUM CHLORIDE 10 ML SYRINGE IV SCH ×3 (05:56→20:20)
[2022-02-11 07:14] LABS: Basophils # (Auto) 0.01 K/mcL (0.00-0.30); Basophils % (Auto) 0.1 % (0.0-2.0); Eosinophils # (Auto) 0 K/mcL (0.00-0.70); Eosinophils % (Auto) 0 % (0.0-7.0); Hematocrit 31.5 % (34.1-44.9); Hemoglobin 9.6 g/dL (11.2-15.7); Lymphocytes # (Auto) 0.89 K/mcL (1.50-4.80); Lymphocytes % (Auto) 10.3 % (15.5-49.0); Mean Cell Volume 92.4 fL (80.0-100.0); Mean Corpuscular HGB Conc 30.5 g/dL (31.0-36.0); Mean Platelet Volume 9.4 fL (8.8-12.5); Monocytes # (Auto) 0.38 K/mcL (0.10-0.90); Monocytes % (Auto) 4.4 % (1.0-12.0); Neutrophils % (Auto) 84.9 % (38.0-78.0); Platelet Count 199 K/mcL (140-440); RBC 3.41 M/mcL (3.59-5.38); Red Cell Distribution Width 14.7 % (11.5-14.5); WBC 8.7 K/mcL (4.5-11.0)
[2022-02-11 07:23] LABS: Phosphorous 2.8 mg/dL (2.5-4.5)
[2022-02-11] MEDS: INSULIN LISPRO 1 UNIT/0.01 ML UNIT SQ SCH ×4 (07:54→20:19)
[2022-02-11] MEDS: FUROSEMIDE 20 MG/2 ML VIAL IV SCH ×2 (07:55→15:16)
[2022-02-11] MEDS: NYSTATIN TOPICAL SCH ×2 (08:35→20:19)
[2022-02-11] MEDS: TRIAMCINOLONE TOPICAL SCH ×2 (08:35→20:19)
[2022-02-11] MEDS: NYSTATIN POWDER BOTTLE 15GM TOPICAL SCH ×2 (08:35→20:19)
[2022-02-11] MEDS: UREA 40% TOPICAL SCH ×2 (08:35→20:18)
[2022-02-11] MEDS: ASPIRIN 81 MG TAB.CHEW PO SCH (08:43)
[2022-02-11] MEDS: DOCUSATE SODIUM 100 MG CAPSULE PO SCH ×2 (08:43→20:17)
[2022-02-11] MEDS: TRIAMCINOLONE CREAM 0.1% 15G 1 DOSE TUBE TOPICAL SCH (08:44)
[2022-02-11] MEDS: FISH OIL 1,000 MG CAPSULE PO SCH (08:44)
[2022-02-11] MEDS: LOSARTAN 50 MG TABLET PO SCH (08:44)
[2022-02-11] MEDS: METOPROLOL TARTRATE 25 MG TABLET PO SCH (08:44)
[2022-02-11] MEDS: MULTIVIT,THER IRON,CA,FA & MIN 1 TABLET PO SCH (08:45)
[2022-02-11] MEDS: MINOCYCLINE 100 MG CAPSULE PO SCH ×2 (08:45→20:46)
[2022-02-11] MEDS: GABAPENTIN 300 MG CAPSULE PO SCH ×2 (08:46→20:17)
[2022-02-11] MEDS: ACYCLOVIR 400 MG TABLET PO SCH ×3 (08:46→20:18)
[2022-02-11] MEDS: cefTRIAXone 1 GM VIAL IV SCH (08:46)
[2022-02-11] MEDS: PANTOPRAZOLE 40 MG TABLET PO SCH (08:46)
[2022-02-11] MEDS ORDERED: ENOXAPARIN 40 MG/0.4 ML SYRINGE SQ SCH (09:00)
[2022-02-11] MEDS: AZITHROMYCIN 500 MG in DEXTROSE 5% IN WATER 250 ML IV SCH (09:57)
[2022-02-11] MEDS ORDERED: DEXTROSE 50% 50 ML VIAL IV PRN (11:17)
[2022-02-11] MEDS ORDERED: DEXTROSE 31 GM ORAL.SUSP PO PRN (11:17)
--- NOTE | 2022-02-11 11:28 | Internal Med Progress Note ---
SUBJECTIVE Subjective Patient information: Note initiated : 02/11/22 at 11:20 am Service Date, if different from initiated Date: [] Patient: Pat Chapin 61 y/o F admitted on 02/10/22 for ams, possible pneumonia. Chief Complaint: [] Interval history: Ms. Chapin is a 61 year old F history of CAD status post CABG, CHF, type 2 diabetes mellitus with diabetic neuropathy on insulin pump, essential hypertension, dyslipidemia, chronic back pain, presented with 1 day history of acute onset shortness of breath, cough, wheezing, fever, diaphoresis, general weakness. No prior similar episode. COVID-negative. Patient's is complaining of acute onset shortness of breath with nonproductive cough and respiratory wheezings. Fever with T-max 38.3. Positive for diaphoresis. Positive for general weakness. Denies any chest pain or palpitations. Vital signs significant for fever with T-max 38.3 as well as tachypnea with rate of breathing up to 30 bpm. Labs significant for leukocytosis with WBC 18.8. Serum lactic acid 2.8 with repeat 2.0. Procalcitonin 0.06. COVID-negative. BNP 3976. Chest x-ray suggestive of CHF with exacerbations versus multifocal pneumonia. 02/11: Afebrile overnight. Blood cultures growing strep canis X2 sets. WBC normalized to 8.7. On 4L/min oxygen (baseline=3L/min). Blood glucose 278 this morning. Insulin pump not working. Patient denies fever or chills but is coming of diaphoresis. She is commenting of improving degree of shortness of breath. She is coming of productive cough with yellow sputum. She is complaining of respiratory wheezings. She denies any chest pain or palpitations. Continue Lasix 20mg IV BID, supplemental oxygen therapy, 2D echocardiogram for CHF exacerbation. Continue Rocephin, Zithromax, repeat blood cultures X2 on 02/12 for bacteremia/pneumonia Add Lantus 20 unit HS and change SSI from low dose to medium dose AC HS for better glycemic control Physical therapy and occupational therapy Constitutional Vitals: Vital Signs Temp Pulse Resp BP Pulse Ox O2 Del Method O2 Flow Rate 36.1 C 70 18 178/74 95 4 02/11/22 08:00 02/11/22 08:00 02/11/22 08:00 02/11/22 08:00 02/11/22 08:00 02/11/22 08:00 02/11/22 08:00 Period Temp Pulse Resp BP Sys/[place] Pulse Ox O2 Del Method O2 Flow Rate Last 24 Hr 36.1 C-36.9 C 68-79 16-24 126-178/57-74 92-97 Nasal Cannula- Nasal Cannula 4-6 Intake and Output 02/10/22 02/11/22 02/11/22 21:59 05:59 13:59 Intake Total 250 550 Output Total 0 550 Balance 250 0 Weight 71.214 kg Intake & Output: Intake & Output 02/10/22 02/11/22 02/11/22 21:59 05:59 13:59 Intake Total 250 550 Output Total 0 550 Balance 250 0 Weight 71.214 kg Intake: IV 250 250 Zithromax 500 mg In Dextrose 5% 250 250 in Water 250 ml @ 250 mls/hr IV Q24H [facility] Rx#:[id number] Oral 0 300 Output: Void Amount 550 # of times incontinent of urine 0 Other: Meal Breakfast Percent of Meal Consumed 100% Feeding Ability Independent Urine Appearance Clear Clear Urine Color Yellow Urine Odor Normal Stool Size Copious Stool Color Brown Stool Consistency Soft # Voids 3 5 Head Head exam: Present atraumatic and normal inspection Eye Eye exam: Present normal appearance ENT ENT exam: Present mucous membranes moist, normal exam and normal external ear exam Additional comments: Nasal cannula in place Neck Neck exam: Present normal inspection Respiratory Respiratory exam: Present rhonchi Cardiovascular Cardiovascular exam: Present normal rate and rhythm GI/Abdominal GI/Abdominal exam: Present normal bowel sounds Extremities Exam Extremities exam: Present pedal edema Back Exam Back exam: Present normal inspection Neurological Exam Neurological exam: Present alert and oriented X3 Skin Skin exam: Present intact and warm OBJ DATA Labs CBC & Chem 7: 02/11/22 06:23 Labs: Abnormal Lab Results 02/11/22 02/10/22 02/10/22 06:23 09:11 08:00 WBC RBC 3.41 L Hgb 9.6 L Hct 31.5 L MCHC 30.5 L RDW 14.7 H Neut % (Auto) 84.9 H Lymph % (Auto) 10.3 L Lymph # (Auto) 0.89 L Dent # (Auto) Immature Gran # Absolute Neutrophils POC VBG pH 7.45 H POC VBG pCO2 at Temp POC VBG HCO3 29.2 H POC VBG Total CO2 30.0 H POC Venous O2 Sat POC VBG Base Excess 5.0 H* VBG Lactic Acid POC BUN POC Glucose Hemoglobin A1c POC WB Ioniz Calcium Alkaline Phosphatase NT-Pro-B Natriuret Pep Urine Glucose (UA) 50 A Urine Urobilinogen 4.0 A 02/10/22 02/10/22 02/10/22 07:52 07:21 07:19 WBC RBC Hgb Hct MCHC RDW Neut % (Auto) Lymph % (Auto) Lymph # (Auto) Dent # (Auto) Immature Gran # Absolute Neutrophils POC VBG pH 7.51 H POC VBG pCO2 at Temp 36.0 L POC VBG HCO3 29.0 H POC VBG Total CO2 30.0 H POC Venous O2 Sat 80.0 H POC VBG Base Excess 6.0 H* VBG Lactic Acid 2.8 H POC BUN 28 H POC Glucose 243 H Hemoglobin A1c 8.7 H POC WB Ioniz Calcium 0.88 L Alkaline Phosphatase NT-Pro-B Natriuret Pep Urine Glucose (UA) Urine Urobilinogen 02/10/22 02/10/22 02/10/22 07:19 07:19 07:19 WBC 18.8 H RBC Hgb 10.0 L Hct 33.4 L MCHC 29.9 L RDW 14.8 H Neut % (Auto) 87.8 H Lymph % (Auto) 5.7 L Lymph # (Auto) 1.07 L Dent # (Auto) 1.12 H Immature Gran # 0.06 H Absolute Neutrophils 16.54 H POC VBG pH POC VBG pCO2 at Temp POC VBG HCO3 POC VBG Total CO2 POC Venous O2 Sat POC VBG Base Excess VBG Lactic Acid POC BUN POC Glucose Hemoglobin A1c POC WB Ioniz Calcium Alkaline Phosphatase 158 H NT-Pro-B Natriuret Pep 3976.0 H Urine Glucose (UA) Urine Urobilinogen 02/10/22 07:14 WBC RBC Hgb Hct MCHC RDW Neut % (Auto) Lymph % (Auto) Lymph # (Auto) Dent # (Auto) Immature Gran # Absolute Neutrophils POC VBG pH 7.46 H POC VBG pCO2 at Temp POC VBG HCO3 30.2 H POC VBG Total CO2 32.0 H POC Venous O2 Sat 71.0 H POC VBG Base Excess 6.0 H* VBG Lactic Acid POC BUN POC Glucose Hemoglobin A1c POC WB Ioniz Calcium Alkaline Phosphatase NT-Pro-B Natriuret Pep Urine Glucose (UA) Urine Urobilinogen Meds: Medications Acetaminophen (Acetaminophen 325 Mg Tablet) 650 mg PO Q6HP PRN; Protocol PRN Reason: Per Pain Protocol/Fever > 101 Hydrocodone Bitart/Acetaminophen (Hydrocodone/Apap 7.5/325mg Tablet) 1 tab PO TIDP PRN PRN Reason: Pain Last Admin: 02/11/22 09:57 Dose: 1 tab Acyclovir (Acyclovir 400 Mg Tablet) 400 mg PO TID [facility]; Protocol Last Admin: 02/11/22 08:46 Dose: 400 mg Albuterol Sulfate (Albuterol Sulfate 200 Puff Inhaler) 1 puff INH Q4-6HP PRN PRN Reason: Cough Albuterol/Ipratropium (Ipratropium/Albuterol 3 Ml Ampul.Neb) 3 ml NEB Q4HRT PRN PRN Reason: Wheezing Amiodarone HCl (Amiodarone Hcl 200 Mg Tablet) mg PO BID [facility] Apixaban (Apixaban 5 Mg Tablet) mg PO BID [facility] Aspirin (Aspirin 81 Mg Tab.Chew) 81 mg PO DAILY [facility] Last Admin: 02/11/22 08:43 Dose: 81 mg Atorvastatin Calcium (Atorvastatin 40 Mg Tablet) 40 mg PO QHS [facility] Last Admin: 02/10/22 21:09 Dose: Not Given Carvedilol (Carvedilol 3.125 Mg Tablet) mg PO BID [facility] Ceftriaxone Sodium (Ceftriaxone 1 Gm Vial) 1 gm IV Q24H [facility] Last Admin: 02/11/22 08:46 Dose: 1 gm Dextrose (Dextrose 50% 50 Ml Vial) 0 ml IV UD PRN PRN Reason: Per Sliding Scale Dextrose (Dextrose 50% 50 Ml Vial) 0 ml IV UD PRN PRN Reason: Per Sliding Scale Diagnostic Test (Pha) (Accu-Chek 1 Each Strip) 1 each FS ACHS [facility] Last Admin: 02/11/22 07:53 Dose: 1 each Diagnostic Test (Pha) (Accu-Chek 1 Each Strip) 1 each FS ACHS [facility] Docusate Sodium (Docusate Sodium 100 Mg Capsule) 100 mg PO BID [facility] Last Admin: 02/11/22 08:43 Dose: 100 mg Enoxaparin Sodium (Enoxaparin 40 Mg/0.4 Ml Syringe) 40 mg SQ DAILY [facility] Last Admin: 02/11/22 08:45 Dose: 40 mg Fish Oil (Fish Oil 1,000 Mg Capsule) 1,000 mg PO DAILY [facility] Last Admin: 02/11/22 08:44 Dose: Not Given Furosemide (Furosemide 20 Mg/2 Ml Vial) 20 mg IV BIDD [facility] Last Admin: 02/11/22 07:55 Dose: 20 mg Gabapentin (Gabapentin 300 Mg Capsule) 600 mg PO QHS [facility] Last Admin: 02/10/22 21:00 Dose: 600 mg Gabapentin (Gabapentin 300 Mg Capsule) 300 mg PO QAM [facility] Last Admin: 02/11/22 08:46 Dose: 300 mg Glucose (Dextrose 31 Gm Oral.Susp) 15 gm PO PRN PRN PRN Reason: Hypoglycemia Glucose (Dextrose 31 Gm Oral.Susp) 15 gm PO PRN PRN PRN Reason: Hypoglycemia Hydralazine HCl (Hydralazine 20 Mg/Ml Vial) 10 mg IV Q4-6HP PRN PRN Reason: Hypertension Azithromycin 500 mg/ Dextrose 250 mls @ 250 mls/hr IV Q24H [facility]; Protocol Stop: 02/12/22 15:59 Last Infusion: 02/11/22 11:12 Dose: Infused Ibuprofen (Ibuprofen 200 Mg Tablet) 400 mg PO Q6-8HP PRN PRN Reason: Pain Insulin Glargine (Insulin Glargine, Human 1 Unit/0.01 Ml) 20 unit SQ HS [facility] Insulin Human Lispro (Insulin Lispro 1 Unit/0.01 Ml Unit) 0 unit SQ ACHS [facility]; Protocol Iron Carb/Multivit/[place]/Folic Acid (Multivit,Ther Iron,Ca,Fa & Min 1 Tablet) 1 tab PO DAILY [facility] Last Admin: 02/11/22 08:45 Dose: 1 tab Levothyroxine Sodium (Levothyroxine 100 Mcg Tablet) mcg PO QDAY [facility] Losartan Potassium (Losartan 50 Mg Tablet) 100 mg PO DAILY [facility] Last Admin: 02/11/22 08:44 Dose: 100 mg Methocarbamol (Methocarbamol 500 Mg Tablet) 500 mg PO BID PRN PRN Reason: Muscle Spasm Metoprolol Tartrate (Metoprolol Tartrate 25 Mg Tablet) 50 mg PO DAILY [facility] Last Admin: 02/11/22 08:44 Dose: 50 mg Minocycline HCl (Minocycline 100 Mg Capsule) 100 mg PO BID [facility] Last Admin: 02/11/22 08:45 Dose: 100 mg Morphine Sulfate (Morphine 4 Mg/Ml Vial) 4 mg IV Q4HP PRN; Protocol PRN Reason: Per Pain Protocol Nitroglycerin (Nitroglycerin 0.4 Mg Tab.Subl) 0.4 mg SL Q5M PRN PRN Reason: Chest Pain Non-Formulary Medication (Diltiazem Hcl) 1 cap PO QAM [facility] Non-Formulary Medication (Duloxetine) 1 cap PO HS [facility] Non-Formulary Medication (Omeprazole) 1 cap PO QDAY [facility] Nystatin (Nystatin Powder Bottle 15gm) 1 dose TOPICAL BID [facility] Last Admin: 02/11/22 08:35 Dose: Not Given Ondansetron HCl (Ondansetron 4 Mg/2 Ml Vial) 4 mg IV Q6HP PRN PRN Reason: Nausea And Vomiting Pantoprazole Sodium (Pantoprazole 40 Mg Tablet) 40 mg PO QDAY [facility] Last Admin: 02/11/22 08:46 Dose: 40 mg Nystatin- Triamcinolone 100, 000-0.1 Unit/G-% Cream 1 dose TOPICAL BID [facility] Last Admin: 02/11/22 08:35 Dose: Not Given Urea 40 % Cream 1 dose TOPICAL BID [facility] Last Admin: 02/11/22 08:35 Dose: Not Given Potassium Chloride (Potassium Chloride 10 Meq Tablet) meq PO QDAY [facility] Senna (Sennosides 1 Tablet) 2 tab PO [facility] Last Admin: 02/10/22 21:07 Dose: Not Given Sodium Chloride (0.9 % Sodium Chloride 10 Ml Syringe) 10 ml IV Q8 [facility] Last Admin: 02/11/22 05:56 Dose: 10 ml Torsemide (Torsemide 20 Mg Tablet) mg PO QDAY [facility] Triamcinolone Acetonide (Triamcinolone Cream 0.1% 15g 1 Dose Tube) 1 dose TOPICAL QDAY [facility] Last Admin: 02/11/22 08:44 Dose: Not Given Zolpidem Tartrate (Zolpidem 5 Mg Tablet) 5 mg PO HSP PRN PRN Reason: Sleep A/P Assessment and plan (1) CHF exacerbation: Status: Acute (2) Community acquired bacterial pneumonia: Status: Acute (3) Type 2 diabetes mellitus with neurologic complication: Status: Chronic (4) CAD (coronary artery disease): Status: Chronic (5) Obesity: Status: Chronic (6) Hyperglycemia: Status: Acute (7) Essential hypertension: Status: Acute (8) Chronic back pain: Status: Acute Qualifiers: Back pain laterality: bilateral Back pain location: low back pain Sciatica presence: without sciatica Qualified Code(s): M54.50 - Low back pain, unspecified; G89.29 - Other chronic pain (9) Acute and chronic respiratory failure: Status: Acute (10) Streptococcal bacteremia: Status: Acute Narrative A/P Narrative: Assessment and Plans: 1. Acute on chronic respiratory failure: DDx: CHF with exacerbation vs community acquired pneumonia Inpatient med surg telemetry Supplemental oxygen therapy Physical therapy Occupational therapy 2D echocardiogram 2L/day fluid restriction Daily weigh Strict intake and output Lasix 20mg IV BID Metoprolol tartrate Losartan Serial lactic acid Blood cultures, strep canis in both sets, see #8 Rocephin Zithromax cbc w/ auto diff in the morning to trend WBC 2. T2DM with diabetic neuropathy on insulin pump: HgA1c 8.7 Hold any oral hypoglycemics Lantus 20 unit HS Medium dose SSI AC HS Accu Chek AC HS Hypoglycemia protocol Diabetic diet 3. h/o CAD: Aspirin Statin Metoprolol tartrate 4. Essential hypertension: Metoprolol tartrate Losartan Lasix IV 5. Hyperlipidemia: Continue statin therapy 6. Chronic back pain: Ibuprofen [place] Morphine IV 7. Obesity: Shank Inspector patient on life style modifications such as regular exercise and healthy diet in order to lose weight 8. Strep canis bacteremia: Blood cultures, strep canis in both sets, repeat blood cultures X2 on 02/12 cbc w/ auto diff in the morning to trend WBC Rocephin Zithromax 2D echocardiogram to rule out endocardial vegetations GI ppx: Protonix DVT ppx: Eliquis Code status: Full Prognosis: Guarded Disposition: Inpatient med surg telemetry; PT OT Time Spent With Patient Time: Total time spent is greater than 50% in coordination of care (as documented) at patient's floor/unit and/or counseling patient: Total time spent with greater than 50% in coordination of care (as documented) at patient's floor/unit and/or counseling patient:: 35 - 50 minutes QUALITY Stroke Symptom Onset Unknown: Yes VTE Deep Vein Thrombosis/Pulmonary Embolism Present on Admission: No
[2022-02-11] MEDS ORDERED: CARVEDILOL 3.125 MG TABLET PO SCH (17:30)
[2022-02-11] MEDS: ATORVASTATIN 40 MG TABLET PO SCH (20:02)
[2022-02-11] MEDS: DULoxetine 30 MG CAPSULE PO SCH (20:16)
[2022-02-11] MEDS: APIXABAN 5 MG TABLET PO SCH (20:17)
[2022-02-11] MEDS: SENNOSIDES 1 TABLET PO SCH (20:17)
[2022-02-11] MEDS: AMIODARONE HCL 200 MG TABLET PO SCH (20:18)
[2022-02-11] MEDS ORDERED: INSULIN GLARGINE, HUMAN 1 UNIT/0.01 ML SQ SCH (21:00)
[2022-02-12] MEDS: HYDROCODONE/APAP 7.5/325MG TABLET PO PRN ×3 (03:45→20:38)
[2022-02-12] MEDS: 0.9 % SODIUM CHLORIDE 10 ML SYRINGE IV SCH ×3 (05:36→20:38)
[2022-02-12 07:08] LABS: Basophils # (Auto) 0.01 K/mcL (0.00-0.30); Basophils % (Auto) 0.1 % (0.0-2.0); Eosinophils # (Auto) 0.03 K/mcL (0.00-0.70); Eosinophils % (Auto) 0.4 % (0.0-7.0); Hematocrit 33.4 % (34.1-44.9); Hemoglobin 10.2 g/dL (11.2-15.7); Lymphocytes # (Auto) 1.51 K/mcL (1.50-4.80); Lymphocytes % (Auto) 22.4 % (15.5-49.0); Mean Cell Volume 91.3 fL (80.0-100.0); Mean Corpuscular HGB Conc 30.5 g/dL (31.0-36.0); Mean Platelet Volume 10.1 fL (8.8-12.5); Monocytes # (Auto) 0.46 K/mcL (0.10-0.90); Monocytes % (Auto) 6.8 % (1.0-12.0); Platelet Count 223 K/mcL (140-440); RBC 3.66 M/mcL (3.59-5.38); Red Cell Distribution Width 14.3 % (11.5-14.5); WBC 6.7 K/mcL (4.5-11.0)
[2022-02-12 07:19] LABS: Phosphorous 3.2 mg/dL (2.5-4.5)
[2022-02-12] MEDS ORDERED: OMEPRAZOLE 20 MG CAPSULE PO SCH (07:30)
[2022-02-12] MEDS: INSULIN LISPRO 1 UNIT/0.01 ML UNIT SQ SCH ×4 (07:35→20:37)
[2022-02-12] MEDS: FUROSEMIDE 20 MG/2 ML VIAL IV SCH (07:36)
[2022-02-12] MEDS: POTASSIUM CHLORIDE 10 MEQ TABLET PO SCH (07:36)
[2022-02-12] MEDS: LEVOTHYROXINE 100 MCG TABLET PO SCH (07:38)
[2022-02-12] MEDS ORDERED: TORSEMIDE 20 MG TABLET PO SCH (09:00)
[2022-02-12] MEDS: METOPROLOL TARTRATE 5 MG/5 ML VIAL IV PRN ×3 (09:24→09:55)
[2022-02-12] MEDS: DOCUSATE SODIUM 100 MG CAPSULE PO SCH ×2 (10:18→20:37)
[2022-02-12] MEDS: LOSARTAN 50 MG TABLET PO SCH (10:18)
[2022-02-12] MEDS: ACYCLOVIR 400 MG TABLET PO SCH ×3 (10:18→20:00)
[2022-02-12] MEDS: APIXABAN 5 MG TABLET PO SCH ×2 (10:18→20:37)
[2022-02-12] MEDS: ASPIRIN 81 MG TAB.CHEW PO SCH (10:18)
[2022-02-12] MEDS: FISH OIL 1,000 MG CAPSULE PO SCH (10:19)
[2022-02-12] MEDS: DILTIAZEM 120 MG CAP.XL.24H PO SCH (10:19)
[2022-02-12] MEDS: GABAPENTIN 300 MG CAPSULE PO SCH ×2 (10:19→20:36)
[2022-02-12] MEDS: AMIODARONE HCL 200 MG TABLET PO SCH ×2 (10:19→19:58)
[2022-02-12] MEDS: PANTOPRAZOLE 40 MG TABLET PO SCH (10:19)
[2022-02-12] MEDS: MULTIVIT,THER IRON,CA,FA & MIN 1 TABLET PO SCH (10:19)
[2022-02-12] MEDS: METOPROLOL TARTRATE 25 MG TABLET PO SCH (10:21)
--- NOTE | 2022-02-12 11:01 | Internal Med Progress Note ---
SUBJECTIVE Subjective Patient information: Note initiated : 02/12/22 at 10:59 am Service Date, if different from initiated Date: [] Patient: Pat Chapin 61 y/o F admitted on 02/10/22 for ams, possible pneumonia. Chief Complaint: [] Interval history: Ms. Chapin is a 61 year old F history of CAD status post CABG, CHF, type 2 diabetes mellitus with diabetic neuropathy on insulin pump, essential hypertension, dyslipidemia, chronic back pain, presented with 1 day history of acute onset shortness of breath, cough, wheezing, fever, diaphoresis, general weakness. No prior similar episode. COVID-negative. Patient's is complaining of acute onset shortness of breath with nonproductive cough and respiratory wheezings. Fever with T-max 38.3. Positive for diaphoresis. Positive for general weakness. Denies any chest pain or palpitations. Vital signs significant for fever with T-max 38.3 as well as tachypnea with rate of breathing up to 30 bpm. Labs significant for leukocytosis with WBC 18.8. Serum lactic acid 2.8 with repeat 2.0. Procalcitonin 0.06. COVID-negative. BNP 3976. Chest x-ray suggestive of CHF with exacerbations versus multifocal pneumonia. 02/11: Afebrile overnight. Blood cultures growing strep canis X2 sets. WBC normalized to 8.7. On 4L/min oxygen (baseline=3L/min). Blood glucose 278 this morning. Insulin pump not working. Patient denies fever or chills but is coming of diaphoresis. She is commenting of improving degree of shortness of breath. She is coming of productive cough with yellow sputum. She is complaining of respiratory wheezings. She denies any chest pain or palpitations. Continue Lasix 20mg IV BID, supplemental oxygen therapy, 2D echocardiogram for CHF exacerbation. Continue Rocephin, Zithromax, repeat blood cultures X2 on 02/12 for bacteremia/pneumonia Add Lantus 20 unit HS and change SSI from low dose to medium dose AC HS for better glycemic control Physical therapy and occupational therapy 02/12: Atrial flutter with heart rate up in the 120s beats per minutes. Afebrile overnight. 2D echocardiogram showing no endocardial vegetations; combined systolic and diastolic dysfunctions with LVEF 30 to 35% and grade 2 diastolic dysfunction. She is on 2.5 L of oxygen's with baseline of 3 L. Blood cultures growing strep canis X2 sets. WBC 6.7. Blood glucose 268 this morning. Patient denies fever or chills but is coming of diaphoresis. She is commenting of improving degree of shortness of breath. She denies any chest pain or palpitations. For CHF, will switch from IV Lasix to PO Torsemide, Coreg, Losartan. Consider adding Aldactone when blood pressure tolerates For PNA/bacteremia: Repeat blood cultures X2 on 02/12. Rocephin and Zithromax Lantus 20-->30 unit HS and SSI change from medium scale to high scale AC HS for better glycemic coverage Physical therapy and occupational therapy Constitutional Vitals: Vital Signs Temp Pulse Resp BP Pulse Ox O2 Del Method O2 Flow Rate 36.4 C 124 H 18 141/87 100 3.5 02/12/22 07:19 02/12/22 09:32 02/12/22 07:19 02/12/22 09:32 02/12/22 07:19 02/12/22 07:19 02/12/22 07:19 Period Temp Pulse Resp BP Sys/[place] Pulse Ox O2 Del Method O2 Flow Rate Last 24 Hr 36.1 C-36.4 C 52-124 17-24 137-178/59-87 90-100 Nasal Cannula- Nasal Cannula 3-3.5 Intake and Output 02/11/22 02/12/22 02/12/22 21:59 05:59 13:59 Intake Total 480 240 Output Total 750 700 350 Balance -750 -220 -110 Weight 116.318 kg Intake & Output: Intake & Output 02/11/22 02/12/22 02/12/22 21:59 05:59 13:59 Intake Total 480 240 Output Total 750 700 350 Balance -750 -220 -110 Weight 116.318 kg Intake: Oral 480 240 Output: Void Amount 750 700 350 Other: Meal Breakfast Percent of Meal Consumed 75% Feeding Ability Independent Urine Appearance Clear Clear Clear Urine Color Yellow Dark Yellow Pale Urine Odor Normal Normal Head Head exam: Present atraumatic and normal inspection Eye Eye exam: Present normal appearance ENT ENT exam: Present mucous membranes moist, normal exam and normal external ear exam Additional comments: Nasal cannula in place Neck Neck exam: Present normal inspection Respiratory Respiratory exam: Present rhonchi Cardiovascular Cardiovascular exam: Present irregular rhythm and tachycardia GI/Abdominal GI/Abdominal exam: Present normal bowel sounds Extremities Exam Extremities exam: Present pedal edema Back Exam Back exam: Present normal inspection Neurological Exam Neurological exam: Present alert and oriented X3 Skin Skin exam: Present intact and warm OBJ DATA Labs CBC & Chem 7: 02/12/22 05:45 Labs: Abnormal Lab Results 02/12/22 02/11/22 02/10/22 05:45 06:23 09:11 WBC RBC 3.41 L Hgb 10.2 L 9.6 L Hct 33.4 L 31.5 L MCHC 30.5 L 30.5 L RDW 14.7 H Neut % (Auto) 84.9 H Lymph % (Auto) 10.3 L Lymph # (Auto) 0.89 L [place] # (Auto) Immature Gran # Absolute Neutrophils POC VBG pH 7.45 H POC VBG pCO2 at Temp POC VBG HCO3 29.2 H POC VBG Total CO2 30.0 H POC Venous O2 Sat POC VBG Base Excess 5.0 H* VBG Lactic Acid POC BUN POC Glucose Hemoglobin A1c POC WB Ioniz Calcium Alkaline Phosphatase NT-Pro-B Natriuret Pep Urine Glucose (UA) Urine Urobilinogen 02/10/22 02/10/22 02/10/22 08:00 07:52 07:21 WBC RBC Hgb Hct MCHC RDW Neut % (Auto) Lymph % (Auto) Lymph # (Auto) [place] # (Auto) Immature Gran # Absolute Neutrophils POC VBG pH 7.51 H POC VBG pCO2 at Temp 36.0 L POC VBG HCO3 29.0 H POC VBG Total CO2 30.0 H POC Venous O2 Sat 80.0 H POC VBG Base Excess 6.0 H* VBG Lactic Acid 2.8 H POC BUN 28 H POC Glucose 243 H Hemoglobin A1c POC WB Ioniz Calcium 0.88 L Alkaline Phosphatase NT-Pro-B Natriuret Pep Urine Glucose (UA) 50 A Urine Urobilinogen 4.0 A 02/10/22 02/10/22 02/10/22 07:19 07:19 07:19 WBC RBC Hgb Hct MCHC RDW Neut % (Auto) Lymph % (Auto) Lymph # (Auto) [place] # (Auto) Immature Gran # Absolute Neutrophils POC VBG pH POC VBG pCO2 at Temp POC VBG HCO3 POC VBG Total CO2 POC Venous O2 Sat POC VBG Base Excess VBG Lactic Acid POC BUN POC Glucose Hemoglobin A1c 8.7 H POC WB Ioniz Calcium Alkaline Phosphatase 158 H NT-Pro-B Natriuret Pep 3976.0 H Urine Glucose (UA) Urine Urobilinogen 02/10/22 02/10/22 07:19 07:14 WBC 18.8 H RBC Hgb 10.0 L Hct 33.4 L MCHC 29.9 L RDW 14.8 H Neut % (Auto) 87.8 H Lymph % (Auto) 5.7 L Lymph # (Auto) 1.07 L [place] # (Auto) 1.12 H Immature Gran # 0.06 H Absolute Neutrophils 16.54 H POC VBG pH 7.46 H POC VBG pCO2 at Temp POC VBG HCO3 30.2 H POC VBG Total CO2 32.0 H POC Venous O2 Sat 71.0 H POC VBG Base Excess 6.0 H* VBG Lactic Acid POC BUN POC Glucose Hemoglobin A1c POC WB Ioniz Calcium Alkaline Phosphatase NT-Pro-B Natriuret Pep Urine Glucose (UA) Urine Urobilinogen Meds: Medications Acetaminophen (Acetaminophen 325 Mg Tablet) 650 mg PO Q6HP PRN; Protocol PRN Reason: Per Pain Protocol/Fever > 101 Hydrocodone Bitart/Acetaminophen (Hydrocodone/Apap 7.5/325mg Tablet) 1 tab PO TIDP PRN PRN Reason: Pain Last Admin: 02/12/22 03:45 Dose: 1 tab Acyclovir (Acyclovir 400 Mg Tablet) 400 mg PO TID [facility]; Protocol Last Admin: 02/12/22 10:18 Dose: 400 mg Albuterol Sulfate (Albuterol Sulfate 200 Puff Inhaler) 1 puff INH Q4-6HP PRN PRN Reason: Cough Albuterol/Ipratropium (Ipratropium/Albuterol 3 Ml Ampul.Neb) 3 ml NEB Q4HRT PRN PRN Reason: Wheezing Amiodarone HCl (Amiodarone Hcl 200 Mg Tablet) 200 mg PO BID [facility] Last Admin: 02/12/22 10:19 Dose: 200 mg Apixaban (Apixaban 5 Mg Tablet) 5 mg PO BID [facility] Last Admin: 02/12/22 10:18 Dose: 5 mg Aspirin (Aspirin 81 Mg Tab.Chew) 81 mg PO DAILY [facility] Last Admin: 02/12/22 10:18 Dose: 81 mg Atorvastatin Calcium (Atorvastatin 40 Mg Tablet) 40 mg PO QHS [facility] Last Admin: 02/11/22 20:02 Dose: Not Given Ceftriaxone Sodium (Ceftriaxone 1 Gm Vial) 1 gm IV Q24H [facility] Last Admin: 02/11/22 08:46 Dose: 1 gm Dextrose (Dextrose 50% 50 Ml Vial) 0 ml IV UD PRN PRN Reason: Per Sliding Scale Dextrose (Dextrose 50% 50 Ml Vial) 0 ml IV UD PRN PRN Reason: Per Sliding Scale Diagnostic Test (Pha) (Accu-Chek 1 Each Strip) 1 each FS ACHS [facility] Last Admin: 02/12/22 07:12 Dose: 1 each Diltiazem HCl (Diltiazem 120 Mg Cap.Xl.24h) 120 mg PO DAILY [facility] Last Admin: 02/12/22 10:19 Dose: 120 mg Docusate Sodium (Docusate Sodium 100 Mg Capsule) 100 mg PO BID [facility] Last Admin: 02/12/22 10:18 Dose: 100 mg Duloxetine HCl (Duloxetine 30 Mg Capsule) 60 mg PO [facility] Last Admin: 02/11/22 20:16 Dose: 60 mg Fish Oil (Fish Oil 1,000 Mg Capsule) 1,000 mg PO DAILY [facility] Last Admin: 02/12/22 10:19 Dose: 1,000 mg Gabapentin (Gabapentin 300 Mg Capsule) 600 mg PO QHS [facility] Last Admin: 02/11/22 20:17 Dose: 600 mg Gabapentin (Gabapentin 300 Mg Capsule) 300 mg PO QAM [facility] Last Admin: 02/12/22 10:19 Dose: 300 mg Glucose (Dextrose 31 Gm Oral.Susp) 15 gm PO PRN PRN PRN Reason: Hypoglycemia Glucose (Dextrose 31 Gm Oral.Susp) 15 gm PO PRN PRN PRN Reason: Hypoglycemia Hydralazine HCl (Hydralazine 20 Mg/Ml Vial) 10 mg IV Q4-6HP PRN PRN Reason: Hypertension Azithromycin 500 mg/ Dextrose 250 mls @ 250 mls/hr IV Q24H [facility]; Protocol Stop: 02/12/22 15:59 Last Infusion: 02/11/22 11:12 Dose: Infused Ibuprofen (Ibuprofen 200 Mg Tablet) 400 mg PO Q6-8HP PRN PRN Reason: Pain Insulin Glargine (Insulin Glargine, Human 1 Unit/0.01 Ml) 20 unit SQ [facility] Last Admin: 02/11/22 20:18 Dose: 20 units Insulin Human Lispro (Insulin Lispro 1 Unit/0.01 Ml Unit) 0 unit SQ [facility]; Protocol Last Admin: 02/12/22 07:35 Dose: 8 unit Iron Carb/Multivit/[place]/Folic Acid (Multivit,Ther Iron,Ca,Fa & Min 1 Tablet) 1 tab PO DAILY [facility] Last Admin: 02/12/22 10:19 Dose: 1 tab Levothyroxine Sodium (Levothyroxine 100 Mcg Tablet) 100 mcg PO QAMAC [facility] Last Admin: 02/12/22 07:38 Dose: 100 mcg Losartan Potassium (Losartan 50 Mg Tablet) 100 mg PO DAILY [facility] Last Admin: 02/12/22 10:18 Dose: 100 mg Methocarbamol (Methocarbamol 500 Mg Tablet) 500 mg PO BID PRN PRN Reason: Muscle Spasm Minocycline HCl (Minocycline 100 Mg Capsule) 100 mg PO BID [facility] Last Admin: 02/11/22 20:46 Dose: 100 mg Morphine Sulfate (Morphine 4 Mg/Ml Vial) 4 mg IV Q4HP PRN; Protocol PRN Reason: Per Pain Protocol Nitroglycerin (Nitroglycerin 0.4 Mg Tab.Subl) 0.4 mg SL Q5M PRN PRN Reason: Chest Pain Nystatin (Nystatin Powder Bottle 15gm) 1 dose TOPICAL BID [facility] Last Admin: 02/11/22 20:19 Dose: Not Given Ondansetron HCl (Ondansetron 4 Mg/2 Ml Vial) 4 mg IV Q6HP PRN PRN Reason: Nausea And Vomiting Pantoprazole Sodium (Pantoprazole 40 Mg Tablet) 40 mg PO QDAY [facility] Last Admin: 02/12/22 10:19 Dose: 40 mg Nystatin- Triamcinolone 100, 000-0.1 Unit/G-% Cream 1 dose TOPICAL BID [facility] Last Admin: 02/11/22 20:19 Dose: Not Given Urea 40 % Cream 1 dose TOPICAL BID [facility] Last Admin: 02/11/22 20:18 Dose: Not Given Potassium Chloride (Potassium Chloride 10 Meq Tablet) 30 meq PO QAMCC [facility] Last Admin: 02/12/22 07:36 Dose: 30 meq Senna (Sennosides 1 Tablet) 2 tab PO HS [facility] Last Admin: 02/11/22 20:17 Dose: 2 tab Sodium Chloride (0.9 % Sodium Chloride 10 Ml Syringe) 10 ml IV Q8 [facility] Last Admin: 02/12/22 05:36 Dose: Not Given Triamcinolone Acetonide (Triamcinolone Cream 0.1% 15g 1 Dose Tube) 1 dose TOPICAL QDAY [facility] Last Admin: 02/11/22 08:44 Dose: Not Given Zolpidem Tartrate (Zolpidem 5 Mg Tablet) 5 mg PO HSP PRN PRN Reason: Sleep A/P Assessment and plan (1) CHF exacerbation: Status: Acute (2) Community acquired bacterial pneumonia: Status: Acute (3) Type 2 diabetes mellitus with neurologic complication: Status: Chronic (4) CAD (coronary artery disease): Status: Chronic (5) Obesity: Status: Chronic (6) Hyperglycemia: Status: Acute (7) Essential hypertension: Status: Acute (8) Chronic back pain: Status: Acute Qualifiers: Back pain laterality: bilateral Back pain location: low back pain Sciatica presence: without sciatica Qualified Code(s): M54.50 - Low back pain, unspecified; G89.29 - Other chronic pain (9) Acute and chronic respiratory failure: Status: Acute (10) Streptococcal bacteremia: Status: Acute (11) Atrial flutter: Status: Acute Narrative A/P Narrative: Assessment and Plans: 1. Acute on chronic respiratory failure: DDx: CHF with exacerbation vs community acquired pneumonia Inpatient med surg telemetry Supplemental oxygen therapy Physical therapy Occupational therapy 2D echocardiogram-->combined CHF with LVEF 30-35% with grade II diastolic dysfunction 2L/day fluid restriction Daily weigh Strict intake and output Switch from IV Lasix to PO TorsemideConsider adding Aldactone when blood pressure tolerates Switch from Metoprolol tartrate to Coreg Losartan Consider adding Aldactone when blood pressure tolerates Serial lactic acid Blood cultures, strep canis in both sets, see #8 Rocephin Zithromax cbc w/ auto diff in the morning to trend WBC 2. T2DM with diabetic neuropathy on insulin pump: HgA1c 8.7 Hold any oral hypoglycemics Lantus 20-->30 unit HS for better glycemic coverage Medium-->high dose SSI AC HS for better glycemic coverage Accu Chek AC HS Hypoglycemia protocol Diabetic diet 3. h/o CAD: Aspirin Statin Coreg 4. Essential hypertension: Coreg Losartan Torsemide 5. Hyperlipidemia: Continue statin therapy 6. Chronic back pain: Ibuprofen Portia Morphine IV 7. Obesity: Finishing Inspector patient on life style modifications such as regular exercise and healthy diet in order to lose weight 8. Strep canis bacteremia: Blood cultures, strep canis in both sets, repeat blood cultures X2 on 02/12 cbc w/ auto diff in the morning to trend WBC Rocephin Zithromax 2D echocardiogram: no endocardial vegetations 9. Atrial flutter: Coreg 25mg PO BID Lopressor 5mg IV q5min X3 doses PRN HR>120bpm, hold if SBP<90 and/or DBP<50mmHg GI ppx: Protonix DVT ppx: Eliquis Code status: Full Prognosis: Guarded Disposition: Inpatient med surg telemetry; PT OT Time Spent With Patient Time: Total time spent is greater than 50% in coordination of care (as documented) at patient's floor/unit and/or counseling patient: Total time spent with greater than 50% in coordination of care (as documented) at patient's floor/unit and/or counseling patient:: 35 - 50 minutes QUALITY Stroke Symptom Onset Unknown: Yes VTE Deep Vein Thrombosis/Pulmonary Embolism Present on Admission: No
[2022-02-12] MEDS: TRIAMCINOLONE TOPICAL SCH ×2 (11:05→20:00)
[2022-02-12] MEDS ORDERED: DEXTROSE 50% 50 ML VIAL IV PRN (11:05)
[2022-02-12] MEDS ORDERED: DEXTROSE 31 GM ORAL.SUSP PO PRN (11:05)
[2022-02-12] MEDS: NYSTATIN POWDER BOTTLE 15GM TOPICAL SCH ×2 (11:05→20:00)
[2022-02-12] MEDS: TRIAMCINOLONE CREAM 0.1% 15G 1 DOSE TUBE TOPICAL SCH (11:05)
[2022-02-12] MEDS: NYSTATIN TOPICAL SCH ×2 (11:05→20:00)
[2022-02-12] MEDS: UREA 40% TOPICAL SCH ×2 (11:06→20:00)
[2022-02-12] MEDS ORDERED: METOPROLOL TARTRATE 5 MG/5 ML VIAL IV PRN (11:08)
[2022-02-12] MEDS: AZITHROMYCIN 500 MG in DEXTROSE 5% IN WATER 250 ML IV SCH (11:25)
[2022-02-12] MEDS: MINOCYCLINE 100 MG CAPSULE PO SCH ×2 (11:26→20:37)
[2022-02-12] MEDS: cefTRIAXone 1 GM VIAL IV SCH (11:26)
--- NOTE | 2022-02-12 13:41 | EKG ---
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 Measurements Intervals [place] Rate: 94 P: 90 [place]: 203 QRS: -12 QRSD: 166 T: 135 QT: 405 QTc: 507 Interpretive Statements Sinus rhythm Left bundle branch block Electronically Signed On 02-12-2022 13:41:04 PDT by Rogelio Tejeda D.O. /[id number]
--- NOTE | 2022-02-12 13:54 | EKG ---
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 Measurements Intervals [place] Rate: 107 P: [place]: QRS: -31 QRSD: 175 T: 148 QT: 415 QTc: 554 Interpretive Statements Sinus tachycardia Left bundle branch block Electronically Signed On 02-12-2022 13:54:24 PDT by Rogelio Tejeda D.O. /[id number]
[2022-02-12] MEDS ORDERED: CARVEDILOL 12.5 MG TABLET PO SCH (17:30)
[2022-02-12] MEDS: SENNOSIDES 1 TABLET PO SCH (20:00)
[2022-02-12] MEDS: DULoxetine 30 MG CAPSULE PO SCH (20:36)
[2022-02-12] MEDS: ATORVASTATIN 40 MG TABLET PO SCH (20:37)
[2022-02-12] MEDS ORDERED: INSULIN GLARGINE, HUMAN 1 UNIT/0.01 ML SQ SCH (21:00)
[2022-02-13] MEDS: HYDROCODONE/APAP 7.5/325MG TABLET PO PRN ×3 (04:59→20:40)
[2022-02-13] MEDS: 0.9 % SODIUM CHLORIDE 10 ML SYRINGE IV SCH ×3 (07:28→20:34)
[2022-02-13] MEDS: LEVOTHYROXINE 100 MCG TABLET PO SCH (07:29)
[2022-02-13] MEDS: INSULIN LISPRO 1 UNIT/0.01 ML UNIT SQ SCH ×5 (07:29→22:40)
[2022-02-13] MEDS: POTASSIUM CHLORIDE 10 MEQ TABLET PO SCH (07:30)
[2022-02-13 07:50] LABS: Basophils # (Auto) 0.02 K/mcL (0.00-0.30); Basophils % (Auto) 0.3 % (0.0-2.0); Eosinophils # (Auto) 0.05 K/mcL (0.00-0.70); Eosinophils % (Auto) 0.8 % (0.0-7.0); Hematocrit 31.6 % (34.1-44.9); Hemoglobin 9.6 g/dL (11.2-15.7); Lymphocytes # (Auto) 1.48 K/mcL (1.50-4.80); Lymphocytes % (Auto) 23.9 % (15.5-49.0); Mean Cell Volume 92.1 fL (80.0-100.0); Mean Corpuscular HGB Conc 30.4 g/dL (31.0-36.0); Mean Platelet Volume 10.4 fL (8.8-12.5); Monocytes # (Auto) 0.39 K/mcL (0.10-0.90); Monocytes % (Auto) 6.3 % (1.0-12.0); Neutrophils % (Auto) 68.5 % (38.0-78.0); Platelet Count 218 K/mcL (140-440); RBC 3.43 M/mcL (3.59-5.38); Red Cell Distribution Width 14.3 % (11.5-14.5); WBC 6.2 K/mcL (4.5-11.0)
[2022-02-13] MEDS ORDERED: CARVEDILOL 12.5 MG TABLET PO SCH (08:00)
[2022-02-13 08:09] LABS: Phosphorous 3.5 mg/dL (2.5-4.5)
[2022-02-13] MEDS: ASPIRIN 81 MG TAB.CHEW PO SCH (08:18)
[2022-02-13] MEDS: TORSEMIDE 10 MG TABLET PO SCH ×2 (08:19→10:56)
[2022-02-13] MEDS: DOCUSATE SODIUM 100 MG CAPSULE PO SCH ×2 (08:19→20:34)
[2022-02-13] MEDS: DILTIAZEM 120 MG CAP.XL.24H PO SCH (08:19)
[2022-02-13] MEDS: AMIODARONE HCL 200 MG TABLET PO SCH ×2 (08:19→19:05)
[2022-02-13] MEDS: LOSARTAN 50 MG TABLET PO SCH (08:19)
[2022-02-13] MEDS: MULTIVIT,THER IRON,CA,FA & MIN 1 TABLET PO SCH (08:20)
[2022-02-13] MEDS: GABAPENTIN 300 MG CAPSULE PO SCH ×2 (08:20→20:34)
[2022-02-13] MEDS: TRIAMCINOLONE CREAM 0.1% 15G 1 DOSE TUBE TOPICAL SCH (08:20)
[2022-02-13] MEDS: APIXABAN 5 MG TABLET PO SCH ×2 (08:20→20:34)
[2022-02-13] MEDS: MINOCYCLINE 100 MG CAPSULE PO SCH ×2 (08:20→20:34)
[2022-02-13] MEDS: TRIAMCINOLONE TOPICAL SCH ×2 (08:21→19:03)
[2022-02-13] MEDS: ACYCLOVIR 400 MG TABLET PO SCH ×3 (08:21→20:33)
[2022-02-13] MEDS: cefTRIAXone 1 GM VIAL IV SCH (08:21)
[2022-02-13] MEDS: PANTOPRAZOLE 40 MG TABLET PO SCH (08:21)
[2022-02-13] MEDS: NYSTATIN TOPICAL SCH ×2 (08:21→19:03)
[2022-02-13] MEDS: NYSTATIN POWDER BOTTLE 15GM TOPICAL SCH ×2 (08:21→19:03)
[2022-02-13] MEDS: UREA 40% TOPICAL SCH ×2 (08:21→19:05)
--- NOTE | 2022-02-13 12:20 | Internal Med Progress Note ---
SUBJECTIVE Subjective Patient information: Note initiated : 02/13/22 at 12:17 pm Service Date, if different from initiated Date: [] Patient: Pat Chapin 61 y/o F admitted on 02/10/22 for ams, possible pneumonia. Chief Complaint: [] Interval history: Ms. Chapin is a 61 year old F history of CAD status post CABG, CHF, type 2 diabetes mellitus with diabetic neuropathy on insulin pump, essential hypertension, dyslipidemia, chronic back pain, presented with 1 day history of acute onset shortness of breath, cough, wheezing, fever, diaphoresis, general weakness. No prior similar episode. COVID-negative. Patient's is complaining of acute onset shortness of breath with nonproductive cough and respiratory wheezings. Fever with T-max 38.3. Positive for diaphoresis. Positive for general weakness. Denies any chest pain or palpitations. Vital signs significant for fever with T-max 38.3 as well as tachypnea with rate of breathing up to 30 bpm. Labs significant for leukocytosis with WBC 18.8. Serum lactic acid 2.8 with repeat 2.0. Procalcitonin 0.06. COVID-negative. BNP 3976. Chest x-ray suggestive of CHF with exacerbations versus multifocal pneumonia. 02/11: Afebrile overnight. Blood cultures growing strep canis X2 sets. WBC normalized to 8.7. On 4L/min oxygen (baseline=3L/min). Blood glucose 278 this morning. Insulin pump not working. Patient denies fever or chills but is coming of diaphoresis. She is commenting of improving degree of shortness of breath. She is coming of productive cough with yellow sputum. She is complaining of respiratory wheezings. She denies any chest pain or palpitations. Continue Lasix 20mg IV BID, supplemental oxygen therapy, 2D echocardiogram for CHF exacerbation. Continue Rocephin, Zithromax, repeat blood cultures X2 on 02/12 for bacteremia/pneumonia Add Lantus 20 unit HS and change SSI from low dose to medium dose AC HS for better glycemic control Physical therapy and occupational therapy 02/12: Atrial flutter with heart rate up in the 120s beats per minutes. Afebrile overnight. 2D echocardiogram showing no endocardial vegetations; combined systolic and diastolic dysfunctions with LVEF 30 to 35% and grade 2 diastolic dysfunction. She is on 2.5 L of oxygen's with baseline of 3 L. Blood cultures growing strep canis X2 sets. WBC 6.7. Blood glucose 268 this morning. Patient denies fever or chills but is coming of diaphoresis. She is commenting of improving degree of shortness of breath. She denies any chest pain or palpitations. For CHF, will switch from IV Lasix to PO Torsemide, Coreg, Losartan. Consider adding Aldactone when blood pressure tolerates For PNA/bacteremia: Repeat blood cultures X2 on 02/12. Rocephin and Zithromax Lantus 20-->30 unit HS and SSI change from medium scale to high scale AC HS for better glycemic coverage Physical therapy and occupational therapy 02/13: Heart rate 48 bpm this morning. Fasting blood glucose 314 this morning. Current ly on 3L/min oxygen this morning, baseline. Blood cultures growing strep canis, final reports pending. Repeat blood culture from 02/12 no growth to date. Patient denies fever or chills or diaphoresis. Baseline degree of shortness of breath. She denies any chest pain or palpitations. For CHF, continue PO Torsemide, Coreg (decrease dose from 12.5 to 3.125mg PO BID), Losartan. Consider adding Aldactone when blood pressure tolerates, maybe at time of discharge. For PNA/bacteremia: Continue to monitor initial and repeat blood culture results. Rocephin and Zithromax Lantus 30-->40 unit HS and SSI change from medium scale to high scale AC HS for better glycemic coverage Physical therapy and occupational therapy for placement planning Constitutional Vitals: Vital Signs Temp Pulse Resp BP Pulse Ox O2 Del Method O2 Flow Rate 36.4 C 48 L 18 134/51 98 3 02/13/22 11:33 02/13/22 11:33 02/13/22 07:56 02/13/22 11:33 02/13/22 11:33 02/13/22 11:33 02/13/22 11:33 Period Temp Pulse Resp BP Sys/[place] Pulse Ox O2 Del Method O2 Flow Rate Last 24 Hr 36.2 C-36.8 C 48-51 11-20 120-159/51-92 96-98 Nasal Cannula- Nasal Cannula 3-3.5 Intake and Output 02/12/22 02/13/22 02/13/22 21:59 05:59 13:59 Intake Total 480 600 Output Total 100 450 Balance -100 30 600 Weight 114.396 kg Intake & Output: Intake & Output 02/12/22 02/13/22 02/13/22 21:59 05:59 13:59 Intake Total 480 600 Output Total 100 450 Balance -100 30 600 Weight 114.396 kg Intake: Oral 480 600 Output: Void Amount 100 450 Other: Meal Breakfast Percent of Meal Consumed 100% Urine Appearance Clear Clear Urine Color Yellow Dark Yellow Stool Size Moderate Stool Color Brown Stool Consistency Soft # Bowel Movements 1 Head Head exam: Present atraumatic and normal inspection Eye Eye exam: Present normal appearance ENT ENT exam: Present mucous membranes moist, normal exam and normal external ear exam Additional comments: Nasal cannula in place Neck Neck exam: Present normal inspection Respiratory Respiratory exam: Present rhonchi Cardiovascular Cardiovascular exam: Present bradycardia GI/Abdominal GI/Abdominal exam: Present normal bowel sounds Extremities Exam Extremities exam: Present pedal edema Back Exam Back exam: Present normal inspection Neurological Exam Neurological exam: Present alert and oriented X3 Skin Skin exam: Present intact and warm OBJ DATA Labs CBC & Chem 7: 02/13/22 05:17 Labs: Abnormal Lab Results 02/13/22 02/12/22 02/11/22 05:17 05:45 06:23 RBC 3.43 L 3.41 L Hgb 9.6 L 10.2 L 9.6 L Hct 31.6 L 33.4 L 31.5 L MCHC 30.4 L 30.5 L 30.5 L RDW 14.7 H Neut % (Auto) 84.9 H Lymph % (Auto) 10.3 L Lymph # (Auto) 1.48 L 0.89 L Hemoglobin A1c 02/10/22 07:19 RBC Hgb Hct MCHC RDW Neut % (Auto) Lymph % (Auto) Lymph # (Auto) Hemoglobin A1c 8.7 H Meds: Medications Acetaminophen (Acetaminophen 325 Mg Tablet) 650 mg PO Q6HP PRN; Protocol PRN Reason: Per Pain Protocol/Fever > 101 Hydrocodone Bitart/Acetaminophen (Hydrocodone/Apap 7.5/325mg Tablet) 1 tab PO TIDP PRN PRN Reason: Pain Last Admin: 02/13/22 04:59 Dose: 1 tab Acyclovir (Acyclovir 400 Mg Tablet) 400 mg PO TID MARCIAL; Protocol Last Admin: 02/13/22 08:21 Dose: 400 mg Albuterol Sulfate (Albuterol Sulfate 200 Puff Inhaler) 1 puff INH Q4-6HP PRN PRN Reason: Cough Albuterol/Ipratropium (Ipratropium/Albuterol 3 Ml Ampul.Neb) 3 ml NEB Q4HRT PRN PRN Reason: Wheezing Amiodarone HCl (Amiodarone Hcl 200 Mg Tablet) 200 mg PO BID [facility] [place] Last Admin: 02/13/22 08:19 Dose: 200 mg Apixaban (Apixaban 5 Mg Tablet) 5 mg PO BID [facility] [place] Last Admin: 02/13/22 08:20 Dose: 5 mg Aspirin (Aspirin 81 Mg Tab.Chew) 81 mg PO DAILY [facility] [place] Last Admin: 02/13/22 08:18 Dose: 81 mg Atorvastatin Calcium (Atorvastatin 40 Mg Tablet) 40 mg PO QHS [facility] [place] Last Admin: 02/12/22 20:37 Dose: 40 mg [facility]vedilol ([facility] 6.25 Mg Tablet) [facility] Ceftriaxone Sodium (Ceftriaxone 1 Gm Vial) 1 gm IV Q24H [facility] [place] Last Admin: 02/13/22 08:21 Dose: 1 gm Dextrose (Dextrose 50% 50 Ml Vial) 0 ml IV UD PRN PRN Reason: Per Sliding Scale Dextrose (Dextrose 50% 50 Ml Vial) 0 ml IV UD PRN PRN Reason: Per Sliding Scale Dextrose (Dextrose 50% 50 Ml Vial) 0 ml IV UD PRN PRN Reason: Per Sliding Scale Diagnostic Test (Pha) (Accu-Chek 1 Each Strip) 1 each FS ACHS [facility] [place] Last Admin: 02/13/22 11:40 Dose: 1 each Diltiazem HCl (Diltiazem 120 Mg Cap.Xl.24h) 120 mg PO DAILY [facility] [place] Last Admin: 02/13/22 08:19 Dose: 120 mg Docusate Sodium (Docusate Sodium 100 Mg Capsule) 100 mg PO BID [facility] [place] Last Admin: 02/13/22 08:19 Dose: 100 mg Duloxetine HCl (Duloxetine 30 Mg Capsule) 60 mg PO HS [facility] [place] Last Admin: 02/12/22 20:36 Dose: 60 mg Gabapentin (Gabapentin 300 Mg Capsule) 600 mg PO QHS [facility] [place] Last Admin: 02/12/22 20:36 Dose: 600 mg Gabapentin (Gabapentin 300 Mg Capsule) 300 mg PO QAM [facility] [place] Last Admin: 02/13/22 08:20 Dose: 300 mg Glucose (Dextrose 31 Gm Oral.Susp) 15 gm PO PRN PRN PRN Reason: Hypoglycemia Glucose (Dextrose 31 Gm Oral.Susp) 15 gm PO PRN PRN PRN Reason: Hypoglycemia Glucose (Dextrose 31 Gm Oral.Susp) 15 gm PO PRN PRN PRN Reason: Hypoglycemia Hydralazine HCl (Hydralazine 20 Mg/Ml Vial) 10 mg IV Q4-6HP PRN PRN Reason: Hypertension Ibuprofen (Ibuprofen 200 Mg Tablet) 400 mg PO Q6-8HP PRN PRN Reason: Pain Insulin Glargine (Insulin Glargine, Human 1 Unit/0.01 Ml) 40 unit SQ HS MARCIAL Insulin Human Lispro (Insulin Lispro 1 Unit/0.01 Ml Unit) 0 unit SQ ACHS [facility] [place]; Protocol Last Admin: 02/13/22 11:40 Dose: 15 unit Iron Carb/Multivit/[place]/Folic Acid (Multivit,Ther Iron,Ca,Fa & Min 1 Tablet) 1 tab PO DAILY [facility] [place] Last Admin: 02/13/22 08:20 Dose: 1 tab Levothyroxine Sodium (Levothyroxine 100 Mcg Tablet) 100 mcg PO QAMAC [facility] [place] Last Admin: 02/13/22 07:29 Dose: 100 mcg Losartan Potassium (Losartan 50 Mg Tablet) 100 mg PO DAILY [facility] [place] Last Admin: 02/13/22 08:19 Dose: 100 mg Methocarbamol (Methocarbamol 500 Mg Tablet) 500 mg PO BID PRN PRN Reason: Muscle Spasm Minocycline HCl (Minocycline 100 Mg Capsule) 100 mg PO BID [facility] [place] Last Admin: 02/13/22 08:20 Dose: 100 mg Morphine Sulfate (Morphine 4 Mg/Ml Vial) 4 mg IV Q4HP PRN; Protocol PRN Reason: Per Pain Protocol Nitroglycerin (Nitroglycerin 0.4 Mg Tab.Subl) 0.4 mg SL Q5M PRN PRN Reason: Chest Pain Nystatin (Nystatin Powder Bottle 15gm) 1 dose TOPICAL BID [facility] [place] Last Admin: 02/13/22 08:21 Dose: Not Given Ondansetron HCl (Ondansetron 4 Mg/2 Ml Vial) 4 mg IV Q6HP PRN PRN Reason: Nausea And Vomiting Pantoprazole Sodium (Pantoprazole 40 Mg Tablet) 40 mg PO QDAY [facility] [place] Last Admin: 02/13/22 08:21 Dose: 40 mg Nystatin- Triamcinolone 100, 000-0.1 Unit/G-% Cream 1 dose TOPICAL BID [facility] [place] Last Admin: 02/13/22 08:21 Dose: Not Given Urea 40 % Cream 1 dose TOPICAL BID [facility] [place] Last Admin: 02/13/22 08:21 Dose: Not Given Potassium Chloride (Potassium Chloride 10 Meq Tablet) 30 meq PO QAMCC [facility] [place] Last Admin: 02/13/22 07:30 Dose: 30 meq Senna (Sennosides 1 Tablet) 2 tab PO HS [facility] [place] Last Admin: 02/12/22 20:00 Dose: Not Given Sodium Chloride (0.9 % Sodium Chloride 10 Ml Syringe) 10 ml IV Q8 [facility] [place] Last Admin: 02/13/22 07:28 Dose: 10 ml Torsemide (Torsemide 10 Mg Tablet) 20 mg PO BID@0900,1100 [facility] [place] Last Admin: 02/13/22 10:56 Dose: 20 mg Triamcinolone Acetonide (Triamcinolone Cream 0.1% 15g 1 Dose Tube) 1 dose TOPICAL QDAY [facility] [place] Last Admin: 02/13/22 08:20 Dose: Not Given Zolpidem Tartrate (Zolpidem 5 Mg Tablet) 5 mg PO HSP PRN PRN Reason: Sleep A/P Assessment and plan (1) CHF exacerbation: Status: Acute (2) Community acquired bacterial pneumonia: Status: Acute (3) Type 2 diabetes mellitus with neurologic complication: Status: Chronic (4) CAD (coronary artery disease): Status: Chronic (5) Obesity: Status: Chronic (6) Hyperglycemia: Status: Acute (7) Essential hypertension: Status: Acute (8) Chronic back pain: Status: Acute Qualifiers: Back pain laterality: bilateral Back pain location: low back pain Sciatica presence: without sciatica Qualified Code(s): M54.50 - Low back pain, unspecified; G89.29 - Other chronic pain (9) Acute and chronic respiratory failure: Status: Acute (10) Streptococcal bacteremia: Status: Acute (11) Atrial flutter: Status: Acute Narrative A/P Narrative: Assessment and Plans: 1. Acute on chronic respiratory failure: DDx: CHF with exacerbation vs community acquired pneumonia Inpatient med surg telemetry Supplemental oxygen therapy Physical therapy Occupational therapy 2D echocardiogram-->combined CHF with LVEF 30-35% with grade II diastolic dysfunction 2L/day fluid restriction Daily weigh Strict intake and output Continue PO Torsemide Consider adding Aldactone when blood pressure tolerates, maybe at time of hospital discharge Coreg 12.5-->3.125mg PO BID Losartan Serial lactic acid Blood cultures, strep canis in both sets, see #8 Rocephin Zithromax cbc w/ auto diff in the morning to trend WBC 2. T2DM with diabetic neuropathy on insulin pump: HgA1c 8.7 Hold any oral hypoglycemics Lantus 30-->40 unit HS for better glycemic coverage Medium-->high dose SSI AC HS for better glycemic coverage Accu Chek AC HS Hypoglycemia protocol Diabetic diet 3. h/o CAD: Aspirin Statin Coreg 4. Essential hypertension: Coreg Losartan Torsemide 5. Hyperlipidemia: Continue statin therapy 6. Chronic back pain: Ibuprofen [place] Morphine IV 7. Obesity: [employer] patient on life style modifications such as regular exercise and healthy diet in order to lose weight 8. Strep canis bacteremia: Blood cultures, strep canis in both sets, final reports pending Repeat blood cultures X2 on 02/12, no growth to date cbc w/ auto diff in the morning to trend WBC Rocephin Zithromax 2D echocardiogram: no endocardial vegetations 9. Atrial flutter: Coreg 12.5-->3.125mg PO BID Amiodarone 200mg PO BID Lopressor 5mg IV q5min X3 doses PRN HR>120bpm, hold if SBP<90 and/or DBP<50mmHg GI ppx: Protonix DVT ppx: Eliquis Code status: Full Prognosis: Guarded Disposition: Inpatient med surg telemetry; PT OT Time Spent With Patient Time: Total time spent is greater than 50% in coordination of care (as documented) at patient's floor/unit and/or counseling patient: Total time spent with greater than 50% in coordination of care (as documented) at patient's floor/unit and/or counseling patient:: 35 - 50 minutes QUALITY Stroke Symptom Onset Unknown: Yes VTE Deep Vein Thrombosis/Pulmonary Embolism Present on Admission: No
[2022-02-13] MEDS: CARVEDILOL 6.25 MG TABLET PO SCH (17:00)
[2022-02-13] MEDS ORDERED: CARVEDILOL 6.25 MG TABLET PO SCH (17:30)
[2022-02-13] MEDS: DULoxetine 30 MG CAPSULE PO SCH (20:33)
[2022-02-13] MEDS: ATORVASTATIN 40 MG TABLET PO SCH (20:33)
[2022-02-13] MEDS: SENNOSIDES 1 TABLET PO SCH (20:33)
[2022-02-13] MEDS ORDERED: INSULIN GLARGINE, HUMAN 1 UNIT/0.01 ML SQ SCH (21:00)
[2022-02-14] MEDS: HYDROCODONE/APAP 7.5/325MG TABLET PO PRN ×2 (05:23→13:19)
[2022-02-14] MEDS: 0.9 % SODIUM CHLORIDE 10 ML SYRINGE IV SCH (05:24)
[2022-02-14 06:54] LABS: Basophils # (Auto) 0.01 K/mcL (0.00-0.30); Basophils % (Auto) 0.1 % (0.0-2.0); Eosinophils # (Auto) 0.09 K/mcL (0.00-0.70); Hematocrit 34.2 % (34.1-44.9); Hemoglobin 10.5 g/dL (11.2-15.7); Lymphocytes % (Auto) 26.7 % (15.5-49.0); Mean Cell Volume 90.7 fL (80.0-100.0); Mean Corpuscular HGB Conc 30.7 g/dL (31.0-36.0); Mean Platelet Volume 9.7 fL (8.8-12.5); Monocytes # (Auto) 0.44 K/mcL (0.10-0.90); Monocytes % (Auto) 4.9 % (1.0-12.0); Neutrophils % (Auto) 66.9 % (38.0-78.0); Platelet Count 291 K/mcL (140-440); RBC 3.77 M/mcL (3.59-5.38); Red Cell Distribution Width 14.1 % (11.5-14.5)
[2022-02-14 07:10] LABS: Phosphorous 4.7 mg/dL (2.5-4.5)
[2022-02-14] MEDS: LEVOTHYROXINE 100 MCG TABLET PO SCH (07:37)
[2022-02-14] MEDS: INSULIN LISPRO 1 UNIT/0.01 ML UNIT SQ SCH ×2 (08:32→11:56)
[2022-02-14] MEDS: POTASSIUM CHLORIDE 10 MEQ TABLET PO SCH (08:33)
[2022-02-14] MEDS: ASPIRIN 81 MG TAB.CHEW PO SCH (08:33)
[2022-02-14] MEDS: CARVEDILOL 6.25 MG TABLET PO SCH (08:33)
[2022-02-14] MEDS: ACYCLOVIR 400 MG TABLET PO SCH (08:33)
[2022-02-14] MEDS: LOSARTAN 50 MG TABLET PO SCH (08:33)
[2022-02-14] MEDS: TORSEMIDE 10 MG TABLET PO SCH ×2 (08:34→11:55)
[2022-02-14] MEDS: DOCUSATE SODIUM 100 MG CAPSULE PO SCH (08:34)
[2022-02-14] MEDS: DILTIAZEM 120 MG CAP.XL.24H PO SCH (08:34)
[2022-02-14] MEDS: GABAPENTIN 300 MG CAPSULE PO SCH (08:34)
[2022-02-14] MEDS: AMIODARONE HCL 200 MG TABLET PO SCH (08:34)
[2022-02-14] MEDS: PANTOPRAZOLE 40 MG TABLET PO SCH (08:34)
[2022-02-14] MEDS: APIXABAN 5 MG TABLET PO SCH (08:34)
[2022-02-14] MEDS: MULTIVIT,THER IRON,CA,FA & MIN 1 TABLET PO SCH (08:34)
[2022-02-14] MEDS: MINOCYCLINE 100 MG CAPSULE PO SCH (08:35)
[2022-02-14] MEDS: cefTRIAXone 1 GM VIAL IV SCH (08:35)
[2022-02-14] MEDS: TRIAMCINOLONE CREAM 0.1% 15G 1 DOSE TUBE TOPICAL SCH (08:44)
[2022-02-14] MEDS: TRIAMCINOLONE TOPICAL SCH (08:44)
[2022-02-14] MEDS: NYSTATIN TOPICAL SCH (08:44)
[2022-02-14] MEDS: NYSTATIN POWDER BOTTLE 15GM TOPICAL SCH (08:44)
[2022-02-14] MEDS: UREA 40% TOPICAL SCH (08:44)
--- NOTE | 2022-02-14 12:27 | Discharge Summary ---
Discharge Provider Provider IMPORTANT FOLLOW-UP INFORMATION FOR PCP: Patient information: Note initiated : 02/14/22 at 12:22 pm Service Date, if different from initiated Date: [] Patient: aPt Chapin 61 y/o F admitted on 02/10/22 for ams, possible pneumonia. Chief Complaint: [] Date of admission: 02/10/22 12:43 Discharge date: 02/14/22 Primary care physician: Natalia Mckinley Attending physician on admission: Syd Chavez Consults: 02/10/22 Consult to Physician [CONS] Stat Comment: Consulting Provider: Syd Chavez Reason For Exam: Physician to Consult Attending physician on discharge: Syd Chavez COURSE Hospital Course Hospital course: Ms. Chapin is a 61 year old F history of CAD status post CABG, CHF, type 2 di abetes mellitus with diabetic neuropathy on insulin pump, essential hypertension, dyslipidemia, chronic back pain, presented with 1 day history of acute onset shortness of breath, cough, wheezing, fever, diaphoresis, general weakness. No prior similar episode. COVID-negative. Patient's is complaining of acute onset shortness of breath with nonproductive cough and respiratory wheezings. Fever with T-max 38.3. Positive for diaphoresis. Positive for general weakness. Denies any chest pain or palpitations. Vital signs significant for fever with T-max 38.3 as well as tachypnea with rate of breathing up to 30 bpm. Labs significant for leukocytosis with WBC 18.8. Serum lactic acid 2.8 with repeat 2.0. Procalcitonin 0.06. COVID-negative. BNP 3976. Chest x-ray suggestive of CHF with exacerbations versus multifocal pneumonia. 02/11: Afebrile overnight. Blood cultures growing strep canis X2 sets. WBC normalized to 8.7. On 4L/min oxygen (baseline=3L/min). Blood glucose 278 this morning. Insulin pump not working. Patient denies fever or chills but is coming of diaphoresis. She is commenting of improving degree of shortness of breath. She is coming of productive cough with yellow sputum. She is complaining of respiratory wheezings. She denies any chest pain or palpitations. Continue Lasix 20mg IV BID, supplemental oxygen therapy, 2D echocardiogram for CHF exacerbation. Continue Rocephin, Zithromax, repeat blood cultures X2 on 02/12 for bacteremia/pneumonia Add Lantus 20 unit HS and change SSI from low dose to medium dose AC HS for better glycemic control Physical therapy and occupational therapy 02/12: Atrial flutter with heart rate up in the 120s beats per minutes. Afebrile overnight. 2D echocardiogram showing no endocardial vegetations; combined systolic and diastolic dysfunctions with LVEF 30 to 35% and grade 2 diastolic dysfunction. She is on 2.5 L of oxygen's with baseline of 3 L. Blood cultures growing strep canis X2 sets. WBC 6.7. Blood glucose 268 this morning. Patient denies fever or chills but is coming of diaphoresis. She is commenting of improving degree of shortness of breath. She denies any chest pain or palpitations. For CHF, will switch from IV Lasix to PO Torsemide, Coreg, Losartan. Consider adding Aldactone when blood pressure tolerates For PNA/bacteremia: Repeat blood cultures X2 on 02/12. Rocephin and Zithromax Lantus 20-->30 unit HS and SSI change from medium scale to high scale AC HS for better glycemic coverage Physical therapy and occupational therapy 02/13: Heart rate 48 bpm this morning. Fasting blood glucose 314 this morning. Currently on 3L/min oxygen this morning, baseline. Blood cultures growing strep canis, final reports pending. Repeat blood culture from 02/12 no growth to date. Patient denies fever or chills or diaphoresis. Baseline degree of shortness of breath. She denies any chest pain or palpitations. For CHF, continue PO Torsemide, Coreg (decrease dose from 12.5 to 3.125mg PO BID), Losartan. Consider adding Aldactone when blood pressure tolerates, maybe at time of discharge. For PNA/bacteremia: Continue to monitor initial and repeat blood culture results. Rocephin and Zithromax Lantus 30-->40 unit HS and SSI change from medium scale to high scale AC HS for better glycemic coverage Physical therapy and occupational therapy for placement planning 02/14: Discharged home Discharge diagnosis: bacteremia, CHF exacerbation Time Spent with Patient Time attestation: Total time spent providing and/or coordinating discharge services: Time spent: Greater than 30 minutes EXAM Constitutional Vitals: Temp Pulse Resp BP Pulse Ox O2 Del Method O2 Flow Rate 36.7 C 54 L 14 147/50 98 2 02/14/22 11:44 02/14/22 11:44 02/14/22 11:44 02/14/22 11:44 02/14/22 11:44 02/14/22 11:44 02/14/22 11:44 General appearance: cooperative and no acute distress Head Head exam: Present atraumatic and normocephalic Eye Eye exam: Present EOMI and PERRL ENT ENT exam: Present mucous membranes moist, normal exam and normal external ear exam Neck Neck exam: Present normal inspection; Absent lymphadenopathy, tenderness or thyr omegaly Respiratory Respiratory exam: Absent accessory muscle use, respiratory distress or wheezes Cardiovascular Cardiovascular exam: Present irregular rhythm; Absent JVD GI/Abdominal GI/Abdominal exam: Present normal bowel sounds and soft; Absent organomegaly or tenderness Extremities Exam Extremities exam: Present full ROM, normal capillary refill, normal inspection and pedal edema; Absent tenderness Neurological Exam Neurological exam: Present alert, CN II-XII intact and oriented X3; Absent motor sensory deficit Psychiatric Psychiatric exam: Present normal affect and normal mood; Absent anxious or depressed Skin Skin exam: Present dry and intact Discharge Data Data Completed and Pending Labs on day of discharge: Labs from last 24 hours 02/14/22 02/14/22 05:10 05:10 WBC 9.0 RBC 3.77 Hgb 10.5 L Hct 34.2 MCV 90.7 MCH 27.9 MCHC 30.7 L RDW 14.1 Plt Count 291 MPV 9.7 Immature Gran % (Auto) 0.4 Neut % (Auto) 66.9 Lymph % (Auto) 26.7 [place] % (Auto) 4.9 Eos % (Auto) 1.0 Baso % (Auto) 0.1 Lymph # (Auto) 2.40 [place] # (Auto) 0.44 Eos # (Auto) 0.09 Baso # (Auto) 0.01 Immature Gran # 0.04 Absolute Neutrophils 6.02 Phosphorus 4.7 H Magnesium 2.3 Preliminary micro results at discharge 02/12/22 05:42 Blood Culture - Preliminary Blood 02/12/22 05:40 Blood Culture - Preliminary Blood 02/10/22 07:42 Blood Culture - Preliminary Blood Streptococcus species Discharge Plan Patient/Caregiver Discharge Instructions Activity: increase activity as tolerated Diet: Consistent Carbohydrate Instructions: Heart Failure (GEN), Pulmonary Edema (GEN) Prescriptions: New ibuprofen 200 mg Tablet 400 mg PO Q6-8HP PRN (Reason: Pain) Qty: 30 0RF albuterol sulfate [Ventolin HFA] 90 mcg/actuation Hfa Aerosol Inhaler 1 puff INH Q4-6HP PRN (Reason: Cough) 30 Days Qty: 10 0RF insulin glargine [Lantus U-100 Insulin] 100 unit/mL Solution 20 unit SQ HS 30 Days Qty: 6 0RF insulin lispro [Humalog U-100 Insulin] 100 unit/mL Solution See Protocol SQ ACHS 30 Days Qty: 6 0RF Protocol: Insulin Sliding Scale, High Condition: HUMALOG/NOVALOG SC SLIDING Dose/Route: SCALE Condition: FSBS < 70 Dose/Route: Give 4 Oz juice, or 15gm oral Instruction: Glucose, or 25ml D50W IV if Dose/Route: unable to take PO. Recheck in Instruction: 15 min and repeat if FSBS < 70 Condition: FSBS 71-140 Dose/Route: NO COVERAGE Condition: FSBS 141-170 Dose/Route: 3 UNITS Condition: FSBS 171-200 Dose/Route: 6 UNITS Condition: FSBS 201-250 Dose/Route: 9 UNITS Condition: FSBS 251-300 Dose/Route: 12 UNITS Condition: FSBS 301-350 Dose/Route: 15 UNITS Condition: FSBS 351-400 Dose/Route: 18 UNITS Condition: FSBS > 400 Dose/Route: 20 UNITS; REPEAT Q2H X2 Instruction: C ONTINUE FOLLOWING SLIDING Condition: SCALE; IF STILL > 400; CALL Dose/Route: PHYSICIAN spironolactone [Aldactone] 25 mg tablet 25 mg PO QDAY Qty: 30 0RF cefdinir 300 mg capsule 300 mg PO BID Qty: 20 0RF Continued nitroglycerin 0.4 mg tablet, sublingual 0.4 mg SUBLINGUAL Q5-15M PRN (Reason: Chest Pain) lancets 1 lancet miscellaneous QDAY Label Comments: Use for blood sugar testing 4-5 times per day. (DME) Insulin Pen [place] Qty: 1 Dose Instruction: As directed Label Comments: Codi Pen [place] 31G X 6MM. Use with Levemir and Novolog pens qid. Rx Instructions: As directed hydrocodone-acetaminophen 7.5-325 mg tablet 1 tab PO PRN PRN (Reason: Pain) Label Comments: 1-2 Q4-6H PRN. urea 40 % cream 1 applic TOPICAL BID nystatin-triamcinolone 100,000-0.1 unit/g-% cream 1 applic TOPICAL BID nystatin 100,000 unit/gram powder 1 applic TOPICAL BID triamcinolone acetonide 0.1 % cream 1 applic TOPICAL QDAY losartan [Cozaar] 100 MG tablet 100 mg PO DAILY acyclovir 400 MG tablet 400 mg PO TID zolpidem 5 MG tablet 5 mg PO HSP PRN (Reason: Sleep) atorvastatin 40 mg tablet 40 mg PO QHS methocarbamol 500 mg tablet 500 mg PO BID PRN (Reason: Muscle Spasm) Label Comments: TAKE 1 TABLET BY MOUTH TWICE DAILY NEEDED gabapentin 300 mg capsule 300 mg PO QAM gabapentin 300 mg Capsule 600 mg PO QHS aspirin [[place] Low Dose Aspirin] 81 mg Tablet,Delayed Release (Dr/Ec) 81 mg PO DAILY diltiazem HCl 120 mg capsule,extended release 24 hr 1 cap PO QAM torsemide 20 mg tablet See Rx Instructions .ROUTE .COMPLEX Rx Instructions: Take 1 tab orally followed by an additional tab 2 hours later. potassium chloride 10 mEq tablet extended release 3 tab PO QDAY omeprazole 40 mg capsule,delayed release(DR/EC) 1 cap PO QDAY carvedilol 3.125 mg tablet 1 tab PO BID levothyroxine [Euthyrox] 100 mcg tablet 1 tab PO QDAY duloxetine 60 mg capsule,delayed release(DR/EC) 1 cap PO HS Eliquis 5 mg tablet 1 tab PO BID amiodarone 200 mg tablet 1 tab PO BID insulin aspart U-100 [Novolog U-100 Insulin aspart] 100 unit/mL solution See Rx Instructions .ROUTE .COMPLEX Rx Instructions: Per home regimen. (DME) blood-glucose meter [True Metrix Glucose Meter] Misc MISCELLANEOUS (DME) True Metrix Glucose Test Strip Strip MISCELLANEOUS Follow Up Plan Follow up with: Natalia Mckinley MD [Primary Care Provider] - 02/21/22 10:00 am (Please arrive 15 minutes early) Patient Disposition: Home, Self-Care Prognosis: Serious Rehab Potential: Good I certify that the patient requires SNF services: No Overall status at discharge: patient is back to baseline Discharge Orders: Discharge Order (Routine); Ordered 02/14/22 Ordered By: Syd STARK VTE Deep Vein Thrombosis/Pulmonary Embolism Present on Admission: No
== END 2022-02-14 14:15 | disposition home or self-care (01) | DRG 291 ==
LOC: ED 06:44 → ICU 12:43
PROVIDERS: ADMIT Internal Medicine; ATTEND Internal Medicine

== ENCOUNTER 2024-07-21 22:30 | Inpatient (IN) ==
[2024-07-21 22:58] LABS: Basophils # (Auto) 0.02 K/mcL (0.00-0.30); Basophils % (Auto) 0.2 % (0.0-2.0); Eosinophils # (Auto) 0.58 K/mcL (0.00-0.70); Eosinophils % (Auto) 6.1 % (0.0-7.0); Hemoglobin 9.9 g/dL (11.2-15.7); Lymphocytes # (Auto) 3.44 K/mcL (1.50-4.80); Lymphocytes % (Auto) 35.9 % (15.5-49.0); Mean Cell Volume 80.4 fL (80.0-100.0); Mean Corpuscular HGB Conc 29.1 g/dL (31.0-36.0); Mean Platelet Volume 9.3 fL (8.8-12.5); Monocytes # (Auto) 0.76 K/mcL (0.10-0.90); Monocytes % (Auto) 7.9 % (1.0-12.0); Neutrophils % (Auto) 49.8 % (38.0-78.0); Platelet Count 339 K/mcL (140-440); RBC 4.23 M/mcL (3.59-5.38); Red Cell Distribution Width 16.5 % (11.5-14.5); WBC 9.6 K/mcL (4.5-11.0)
[2024-07-21] MEDS: 0.9 % SODIUM CHLORIDE 500 ML IV ONE (23:07)
[2024-07-21 23:47] LABS: ALT/SGPT 8 U/L (<40); AST/SGOT 23 U/L (<32); Albumin 3.9 gm/dL (3.2-5.2); Albumin/Globulin Ratio 1.4 (1.0-2.3); Alkaline Phosphatase 152 U/L (39-117); Bilirubin,Total < 0.2 mg/dL (0.1-1.0); Blood Urea Nitrogen 33 mg/dL (8-23); Calcium 8.3 mg/dL (8.6-10.4); Carbon Dioxide 24 mmol/L (22-30); Chloride 103 mmol/L (96-108); Globulin 2.8 gm/dL (2.2-3.7); Glomerular Filtration Rate 39; Glucose 203 mg/dL (70-105); Potassium 4.9 mmol/L (3.3-5.1); Sodium 139 mmol/L (133-145); Thyroid Stimulating Hormone 2.96 uIU/mL (0.27-5.01)
[2024-07-21] MEDS: FUROSEMIDE 20 MG/2 ML VIAL IV ONE (23:50)
[2024-07-22 02:20] LABS: Appearance,Urine Clear (Clear); Bilirubin,Urine Negative (Negative); Color,Urine Yellow; Glucose,Urine (UA) Negative (Negative); Ketones,Urine 15 mg/dL (Negative); Leukocyte Esterase,Urine Negative /uL (Negative); Nitrate,Urine Negative (Negative); PH,Urine 5.5 (5.0-9.0); Protein,Urine >=300 mg/dL (Negative); Urine Amorphous Crystals MOD /hpf; Urine Blood Small ery/mcL (Negative); Urine RBC 5 /hpf (0-3); Urine Squamous Epithelial Cell 0 /hpf (0-4); Urine WBC 1 /hpf (0-4); Urobilinogen,Urine Normal
[2024-07-22] MEDS ORDERED: LACTULOSE 20 GM/30 ML ORAL.SOL PO PRN (02:36)
[2024-07-22] MEDS ORDERED: SENNOSIDES 1 TABLET PO PRN ×2 (02:36→07:57)
[2024-07-22] MEDS ORDERED: ONDANSETRON 4 MG/2 ML VIAL IV PRN ×2 (02:36→07:57)
[2024-07-22] MEDS: FUROSEMIDE 20 MG/2 ML VIAL IV ONE (02:55)
[2024-07-22] MEDS: HYDROCODONE/APAP 7.5/325MG TABLET PO ONE (02:55)
[2024-07-22 06:37] LABS: ALT/SGPT 9 U/L (<40); AST/SGOT 19 U/L (<32); Albumin 3.7 gm/dL (3.2-5.2); Albumin/Globulin Ratio 1.4 (1.0-2.3); Alkaline Phosphatase 136 U/L (39-117); Bilirubin,Direct < 0.2 mg/dL (0-0.3); Bilirubin,Total 0.2 mg/dL (0.1-1.0); Blood Urea Nitrogen 33 mg/dL (8-23); Calcium 8.2 mg/dL (8.6-10.4); Carbon Dioxide 26 mmol/L (22-30); Chloride 102 mmol/L (96-108); Globulin 2.7 gm/dL (2.2-3.7); Glomerular Filtration Rate 47; Glucose 114 mg/dL (70-105); Lactate Dehydrogenase 247 U/L (135-225); Phosphorous 5.1 mg/dL (2.5-4.5); Potassium 4.2 mmol/L (3.3-5.1); Sodium 138 mmol/L (133-145); Triglycerides 57 mg/dL (<150); Uric Acid 5.8 mg/dL (2.5-8.0)
[2024-07-22] MEDS ORDERED: MAGNESIUM SULFATE 2 GM/50 ML BAG IV PRN (07:57)
[2024-07-22] MEDS ORDERED: METOCLOPRAMIDE 10 MG/2 ML VIAL IV PRN (07:57)
[2024-07-22] MEDS ORDERED: POTASSIUM CHLORIDE 40 MEQ in DEXTROSE 5% IN WATER 500 ML IV PRN (07:57)
[2024-07-22] MEDS ORDERED: ACETAMINOPHEN 325 MG TABLET PO PRN (07:57)
[2024-07-22] MEDS ORDERED: POTASSIUM CHLORIDE 20 MEQ TABLET PO PRN ×2 (07:57)
[2024-07-22] MEDS ORDERED: IPRATROPIUM/ALBUTEROL 3 ML AMPUL.NEB NEB PRN (07:57)
[2024-07-22] MEDS ORDERED: NITROGLYCERIN 0.4 MG TAB.SUBL SL PRN (08:15)
[2024-07-22] MEDS ORDERED: HYDROCODONE/APAP 7.5/325MG TABLET PO PRN (08:17)
[2024-07-22] MEDS ORDERED: DEXTROSE 50% 50 ML VIAL IV PRN (08:18)
[2024-07-22] MEDS: APIXABAN 5 MG TABLET PO SCH (09:52)
[2024-07-22] MEDS: LEVOTHYROXINE 100 MCG TABLET PO SCH (09:52)
[2024-07-22] MEDS: CARVEDILOL 3.125 MG TABLET PO SCH (09:52)
[2024-07-22] MEDS: DOCUSATE SODIUM 100 MG CAPSULE PO SCH (09:52)
[2024-07-22] MEDS: SENNOSIDES 1 TABLET PO ONE (09:53)
[2024-07-22] MEDS: POLYETHYLENE GLYCOL 3350 17 GM PACKET PO SCH (09:53)
[2024-07-22] MEDS: METOPROLOL TARTRATE 5 MG/5 ML VIAL IV ONE (09:53)
[2024-07-22] MEDS: OMEPRAZOLE 20 MG CAPSULE PO SCH (09:53)
[2024-07-22] MEDS: HYDROCODONE/APAP 7.5/325MG TABLET PO PRN (09:57)
[2024-07-22] MEDS: 0.9 % SODIUM CHLORIDE 10 ML SYRINGE IV SCH (09:58)
[2024-07-22] MEDS: INSULIN LISPRO 1 UNIT/0.01 ML UNIT SQ SCH (11:56)
[2024-07-22] MEDS: METOPROLOL TARTRATE 5 MG/5 ML VIAL IV PRN (14:10)
[2024-07-22] MEDS: FUROSEMIDE 40 MG/4 ML VIAL IV SCH (15:12)
[2024-07-22] MEDS: METHOCARBAMOL 500 MG TABLET PO PRN (16:49)
[2024-07-22] MEDS: ATORVASTATIN 40 MG TABLET PO SCH (21:28)
[2024-07-22] MEDS: DULoxetine 30 MG CAPSULE PO SCH (21:28)
[2024-07-22] MEDS: INSULIN GLARGINE, HUMAN 1 UNIT/0.01 ML SQ SCH (21:29)
[2024-07-22] MEDS: ZOLPIDEM 5 MG TABLET PO PRN (23:05)
[2024-07-23 06:22] LABS: ALT/SGPT 8 U/L (<40); AST/SGOT 19 U/L (<32); Albumin 3.9 gm/dL (3.2-5.2); Albumin/Globulin Ratio 1.4 (1.0-2.3); Alkaline Phosphatase 147 U/L (39-117); Bilirubin,Direct < 0.2 mg/dL (0-0.3); Bilirubin,Total 0.2 mg/dL (0.1-1.0); Blood Urea Nitrogen 32 mg/dL (8-23); Calcium 8.8 mg/dL (8.6-10.4); Carbon Dioxide 27 mmol/L (22-30); Chloride 103 mmol/L (96-108); Globulin 2.7 gm/dL (2.2-3.7); Glomerular Filtration Rate 59; Glucose 96 mg/dL (70-105); Lactate Dehydrogenase 247 U/L (135-225); Phosphorous 4.7 mg/dL (2.5-4.5); Potassium 4.9 mmol/L (3.3-5.1); Sodium 139 mmol/L (133-145); Triglycerides 71 mg/dL (<150); Uric Acid 5.8 mg/dL (2.5-8.0)
[2024-07-23] MEDS: METOPROLOL TARTRATE 25 MG TABLET PO SCH ×2 (08:02→18:25)
[2024-07-23] MEDS: FUROSEMIDE 40 MG/4 ML VIAL IV SCH (08:03)
[2024-07-23] MEDS: GABAPENTIN 300 MG CAPSULE PO SCH ×2 (09:05→20:51)
[2024-07-23 16:09] LABS: Hematocrit 34.2 % (34.1-44.9); Hemoglobin 9.7 g/dL (11.2-15.7); Mean Cell Volume 81.8 fL (80.0-100.0); Mean Corpuscular HGB Conc 28.4 g/dL (31.0-36.0); Platelet Count 306 K/mcL (140-440); RBC 4.18 M/mcL (3.59-5.38); Red Cell Distribution Width 16.8 % (11.5-14.5); WBC 9.3 K/mcL (4.5-11.0)
[2024-07-23 16:19] LABS: C-Reactive Protein 0.45 mg/dL (0.03-0.80)
[2024-07-23 16:32] LABS: Iron 18 ug/dL (37-145); TIBC Calculation 397 ug/dl (228-428); Transferrin % Saturation 5 % (15-50)
[2024-07-23 16:37] LABS: Anisocytosis 1+ (None Seen); Band Neutrophils % 3 % (0-10); Eosinophils % (Manual) 9 % (0-7); Hypochromasia 2+ (None Seen); Lymphocytes % 31 % (15-49); Monocytes % (Manual) 6 % (1-12); Platelet Estimate NORMAL (Normal); RBC Morphology ABNORMAL (Normal); Segmented Neutrophils % 51 % (38-78)
[2024-07-23 16:53] LABS: Amphetamine Screen,Urine None detected; Barbiturate Screen,Urine None detected; Benzodiazepines Screen,Urine None detected; Cannabinoid Screen,Urine None detected; Cocaine Screen,Urine None detected; Fentanyl, Urine Screen None Detected; Opiate Screen,Urine None detected; Oxycodone, Urine Screen None detected; Phencyclidine Screen,Urine None detected
[2024-07-23] MEDS ORDERED: IRON SUCROSE COMPLEX 100 MG/5 ML VIAL IV SCH ×2 (19:10→21:40)
[2024-07-23] MEDS: AMIODARONE 150 MG in DEXTROSE 5% IN WATER 50 ML IV ONE (20:50)
[2024-07-23] MEDS: AMIODARONE 360 MG/200 ML BAG IV ONE (20:57)
[2024-07-23] MEDS: AMIODARONE 150 MG/3 ML VIAL IV ONE (20:57)
[2024-07-23] MEDS ORDERED: METOPROLOL TARTRATE 25 MG TABLET PO SCH (21:00)
[2024-07-23] MEDS: AMIODARONE 360 MG in PREMIX 1 BAG IV SCH (21:21)
[2024-07-23] MEDS: IRON SUCROSE COMPLEX 100 MG/5 ML VIAL IV SCH (22:16)
[2024-07-24] MEDS: AMIODARONE 360 MG in PREMIX 1 BAG IV SCH (03:35)
[2024-07-24] MEDS: AMIODARONE 360 MG/200 ML BAG IV ONE (03:35)
[2024-07-24 06:47] LABS: ALT/SGPT 9 U/L (<40); AST/SGOT 18 U/L (<32); Albumin 3.7 gm/dL (3.2-5.2); Albumin/Globulin Ratio 1.4 (1.0-2.3); Alkaline Phosphatase 141 U/L (39-117); Bilirubin,Direct < 0.2 mg/dL (0-0.3); Bilirubin,Total < 0.2 mg/dL (0.1-1.0); Blood Urea Nitrogen 37 mg/dL (8-23); Calcium 8.5 mg/dL (8.6-10.4); Carbon Dioxide 25 mmol/L (22-30); Chloride 103 mmol/L (96-108); Globulin 2.6 gm/dL (2.2-3.7); Glomerular Filtration Rate 52; Glucose 90 mg/dL (70-105); Lactate Dehydrogenase 244 U/L (135-225); Phosphorous 4.6 mg/dL (2.5-4.5); Potassium 4.6 mmol/L (3.3-5.1); Sodium 138 mmol/L (133-145); Triglycerides 58 mg/dL (<150); Uric Acid 6.4 mg/dL (2.5-8.0)
[2024-07-24] MEDS: AMIODARONE HCL 200 MG TABLET PO SCH (07:47)
[2024-07-24] MEDS: CARVEDILOL 3.125 MG TABLET PO SCH (07:47)
[2024-07-24] MEDS ORDERED: FUROSEMIDE 40 MG/4 ML VIAL IV SCH (08:00)
[2024-07-24] MEDS: TORSEMIDE 20 MG TABLET PO SCH (08:17)
[2024-07-24] MEDS ORDERED: IRON SUCROSE COMPLEX 100 MG/5 ML VIAL IV SCH (09:00)
[2024-07-24] MEDS: POLYETHYLENE GLYCOL 3350 17 GM PACKET PO PRN (11:19)
[2024-07-24] MEDS: IRON SUCROSE COMPLEX 300 MG in 0.9 % SODIUM CHLORIDE 250 ML IV SCH (13:31)
[2024-07-25 06:04] LABS: Hematocrit 31.3 % (34.1-44.9); Hemoglobin 9.2 g/dL (11.2-15.7)
[2024-07-25 06:23] LABS: ALT/SGPT < 5 U/L (<40); AST/SGOT 18 U/L (<32); Albumin 3.4 gm/dL (3.2-5.2); Albumin/Globulin Ratio 1.2 (1.0-2.3); Alkaline Phosphatase 138 U/L (39-117); Bilirubin,Direct < 0.2 mg/dL (0-0.3); Bilirubin,Total 0.2 mg/dL (0.1-1.0); Blood Urea Nitrogen 35 mg/dL (8-23); Calcium 8.3 mg/dL (8.6-10.4); Carbon Dioxide 24 mmol/L (22-30); Chloride 102 mmol/L (96-108); Globulin 2.9 gm/dL (2.2-3.7); Glomerular Filtration Rate 52; Glucose 166 mg/dL (70-105); Lactate Dehydrogenase 255 U/L (135-225); Phosphorous 4.3 mg/dL (2.5-4.5); Potassium 4.5 mmol/L (3.3-5.1); Sodium 137 mmol/L (133-145); Triglycerides 72 mg/dL (<150); Uric Acid 6.7 mg/dL (2.5-8.0)
[2024-07-25 12:18] VITALS: O2SAT 93
[2024-07-25 14:00] VITALS: TEMP 97.4
[2024-07-25] MEDS ORDERED: INSULIN GLARGINE, HUMAN 1 UNIT/0.01 ML SQ SCH (21:00)
== END 2024-07-25 13:39 | disposition home or self-care (01) | DRG 291 ==
LOC: ED 22:30 → ICU 07-22 03:22
PROVIDERS: ADMIT Internal Medicine; ATTEND Internal Medicine